=== PATIENT | female | born 1940 | race Caucasian/White ===

== ENCOUNTER 2018-02-17 13:21 | Emergency (ER) | payer MEDICARE, SELFPAY ==
[2018-02-17 13:22] VITALS: BP 148/83; PULSE 65; RESP 18; TEMP 36.8; O2SAT 98
--- NOTE | 2018-02-17 13:22 | EKG12_ITS ---
Test Reason : CP Blood Pressure : / mmHG Vent. Rate : 066 BPM Atrial Rate : 066 BPM P-R Int : 148 ms QRS Dur : 114 ms QT Int : 462 ms P-R-T Axes : 065 -47 078 degrees QTc Int : 484 ms Normal sinus rhythm Left axis deviation Incomplete left bundle branch block Abnormal ECG Confirmed by LEON LOPEZ, BEN ([id number]), science editor RUBEN JANG ([id number] on 02/20/2018 1:34:52 PM Referred By: Confirmed By:BEN QUINTERO MD
[2018-02-17 13:32] VITALS: O2SAT 100
[2018-02-17] MEDS: Ondansetron ODT 4 MG Tablet PO (13:38)
[2018-02-17] MEDS: morphine 8 MG/ML Syringe IV (13:38)
--- NOTE | 2018-02-17 13:38 | RAD_ITS ---
STUDY: X-RAY CHEST REASON FOR EXAM: Female, 77 years old. Chest pain. Heart disease. TECHNIQUE: Single frontal view of the chest. COMPARISON: 05/23/2012. FINDINGS: There is hyperinflation of the lungs consistent with chronic obstructive lung disease (COPD). Stable calcified granuloma lower right lung. No infiltrates or effusions. There is no demonstrated pleural abnormality. There is borderline cardiomegaly. Normal mediastinum and roxie. Normal visualized pulmonary arteries. Normal visualized aortic arch and descending thoracic aorta. Normal visualized thoracic spine. Normal visualized ribs, clavicles, and shoulders. There is no demonstrated abnormality of the visualized soft tissue structures of the upper abdomen. RAD/Chest 1 View (Portable) IMPRESSION: There are findings consistent with COPD. There is no evidence of acute chest disease. Electronically Signed: Sherwin Shine MD at 14:01 EDT , Service support ,
[2018-02-17 13:42] LABS: Absolute Lymphocyte Count 1.12 X10^3/ul (0.83-4.51); Absolute Neutrophil Count 6.5 X10^3/uL (2.0-7.7); Basophil# 0.01 X10^3/uL; Basophil% 0.1 % (0-1); Eosinophils% 1.1 % (0-5); Hematocrit 41.4 % (37-47); Hemoglobin 12.9 g/dl (12.0-15.0); Lymphocyte # 1.12 X10^3/ul (4.0); Lymphocyte % 12.8 % (19-41); Mean Corp Hgb Conc 31.2 g/gl (32-36); Mean Corpuscular Hgb 26.8 pg (27.0-32.0); Mean Corpuscular Volume 85.9 fL (81-99); Mean Platelet Vol. 11.7 fl (6.2-12.0); Monocyte# 0.97 X10^3/uL; Monocyte% 11.1 % (0-10); Neutrophil # 6.51 X10^3/uL (2.7-7.7); Neutrophil % 74.8 % (47-70); POSITIVE COUNT NO; POSITIVE DIFFERENTIAL NO; POSITIVE MORPHOLOGY NO; Platelet Count 133 K/mm3 (150-450); RBC Distribution Width CV 14.5 % (11.6-14.6); RBC Distribution Width SD 45.7 fl (35.1-43.9); Red Blood Count 4.82 M/mm3 (4.2-5.4); White Blood Count 8.7 K/mm3 (4.4-11.0)
--- NOTE | 2018-02-17 13:42 | ED.VISSUMM ---
- ER Visit Summary Date of Service: 02/17/18 Chief Complaint: [] Sharp chest pain for 4-5 days History of Present Illness: The patient is a 77 F [] history of cardiomyopathy ejection fraction 25%, hypertension, one cardiac stent, reports for about 4-5 days she has had chest pain that is sharp in nature, intermittent but has persisted for the last few days, it is persisted and she finally came in for evaluation today she has had a chronic cough that is not new for years no fever no abdominal pain or paresthesias this is not like prior anginal type pain that she has had. Her cardiac status is very stable she seen by Dr. Mcintosh, the last test she had she thought was a cardiac echo that showed nothing new or different she has no history of abdominal pain normal bowel bladder habits no fever no history of DVT or PE and history of leg edema has been able to basically go about her normal activities but want to be evaluated for the chest pain Physical Examination: [] Pressures 208/p she is awake and alert the rest of her vitals are within normal range indicates the pain is worse with a deep breath and with some movements her head exam is unremarkable her neck is supple her lungs are clear the heart tones are distant no obvious murmurs the abdomen is soft nontender upper lower extremity unremarkable pulses symmetric bilaterally the back is unremarkable when she leans forward she complains of discomfort her arm movement is unremarkable without reproduction of pain her lower extremities are unremarkable without cyanosis clubbing or edema neurologically she is awake alert and pulses are symmetric Test Results: [] These note she did have a nuclear stress test in 2014 that showed no signs of ischemic areas Emergency Department Course and Treatment: [] The EKG shows left bundle branch block that is old nothing new compared to prior CBC chemistry troponin d-dimer chest x-ray are all negative on reevaluation she is feeling better a long conversation with her we discussed inpatient versus outpatient admission she then questioned me as to whether or not the fact that maybe she was digging in the garden on Sunday the day before this started if that could have contributed to the pain she is having I told her that was certainly a possibility but she given her cardiac status and condition she may require other diagnostic studies inpatient management etc. she did not wish to stay in the hospital she preferred outpatient workup as again she was feeling fine she has had pain for days the pain is not exertional it is a sharp intermittent stabbing pain Spoke with Dr. Cannon on-call for Dr. Mcintosh given all the above he agrees she will follow-up with outpatient the next few days return for change in symptoms, as a precaution I will provide her with Imn[place] to use as needed as needed if Tylenol is not controlling her pain Treatment Plan: [] Disposition: [] Home stable Impression: [] Sharp chest pain etiology unclear history of cardiomyopathy This note was generated with The car easily beat dictation software. It may contain incorrect words, spelling, and punctuation that were not noted in review of the chart prior to signing ED Disposition - Plan for ED Patient: Chief Complaint: Chest Pain Referrals: Wesley Weinberg III, MD [Primary Care Provider] -
[2018-02-17 13:58] LABS: D-Dimer Quantitative (DVT/PE) 0.28 FEU/ug/m (0.27-0.49)
[2018-02-17 14:01] LABS: Anion Gap 6 (5-15); BUN 20 mg/dL (7-18); Chloride 101 mmol/L (98-107); Creatinine, Serum 1.25 mg/dL (0.55-1.02); EST Glomerular Filtration Rate 44 mL/min (>60); Est Glom Filt Rate - Afr Amer 54 mL/min (>60); Glucose 135 mg/dL (74-106); Potassium 3.6 mmol/L (3.5-5.1); Sodium Level 139 mmol/L (136-145)
[2018-02-17 14:03] VITALS: BP 164/69; PULSE 57; RESP 16; O2SAT 98
--- NOTE | 2018-02-17 14:28 | ED.DEP ---
ED Disposition - Plan for ED Patient: Chief Complaint: Chest Pain Instructions: ED Chest Pain Atypical Unkn Cause Prescriptions: Hydrocodone/Acetaminophen [[place] 5-325 Tablet] 1 - 2 ea PO 4X/DAY PRN PRN 3 Days #12 tab PRN Reason: Pain Referrals: Wesley Weinberg III, MD [Primary Care Provider] -
--- NOTE | 2018-02-17 14:31 | DCINST.ED_ITS ---
ED Disposition - Plan for ED Patient: Chief Complaint: Chest Pain Instructions: ED Chest Pain Atypical Unkn Cause Prescriptions: Hydrocodone/Acetaminophen [[place] 5-325 Tablet] 1 - 2 ea PO 4X/DAY PRN PRN 3 Days #12 tab PRN Reason: Pain Referrals: Wesley Weinberg III, MD [Primary Care Provider] -
[2018-02-17 14:52] VITALS: BP 128/73; PULSE 55; RESP 17; O2SAT 93
== END 2018-02-17 14:53 | disposition home or self-care (01) ==
PROVIDERS: Emergency Provider Emergency Medicine; Family Provider Family Medicine; PCP Family Medicine
DX: R07.9 Chest pain, unspecified (principal); I42.9 Cardiomyopathy, unspecified; I10 Essential (primary) hypertension; Z95.2 Presence of prosthetic heart valve; Z79.82 Long term (current) use of aspirin; Z79.899 Other long term (current) drug therapy
CPT/HCPCS: 71045; 80048; 84484; 85025; 85379; 93005; 96374; 99285; A4216

== ENCOUNTER → 2018-04-18 08:38 | Outpatient (CLI) | payer MEDICARE, SELFPAY ==
[2018-04-18 09:55] LABS: AST(SGOT) 32 U/L (15-37); Alanine Aminotransfer ALT/SGPT 24 U/L (13-56); Albumin, Serum 3.4 g/dL (3.2-5.0); Alkaline Phosphatase 101 U/L (45-117); Bilirubin, Direct 0.18 mg/dL (0.00-0.30); Cholesterol 160 mg/dL (200); Globulin 3.6 g/dL (2.2-4.2); High Density Lipoprotein 90 mg/dL; Triglycerides 99 mg/dL; Very Low Density Lipoprotein 20 mg/dL (5-40)
== END ==
PROVIDERS: Family Provider Family Medicine; PCP Family Medicine; Visit Provider Nurse Practitioner Family
DX: E78.5 Hyperlipidemia, unspecified (principal); Z79.899 Other long term (current) drug therapy
CPT/HCPCS: 36415; 80061; 80076

== ENCOUNTER 2018-07-31 10:20 | Day surgery (SDC) | payer MEDICARE, SELFPAY ==
[2018-07-31 11:04] VITALS: BP 167/102; PULSE 73; RESP 14; TEMP 36.9; O2SAT 100; BMI 19.6
--- NOTE | 2018-07-31 11:27 | PCM.HP.BLA ---
History and Physical Date of Admission: 07/31/18 HISTORY AND PHYSICAL ? Jaleesa Kaur 1940 ? REFERRING PHYSICIAN: ??Wesley Weinberg III, MD ? CHIEF COMPLAINT: ??Consult ? HPI: The patient is a 77 year old female referred for endoscopy. ?Jaleesa notes no history of colon complaints. ?She denies any change in bowel habits, weight changes, blood in stools, black tarry stools or abdominal pain. ?She denies any family history of colon issues. ?The patient ?notes no history of upper GI complaints. ? Jaleesa has ?undergone prior endoscopy in 2007. ?She was scheduled for another colonoscopy last year at the [facility] with Dr. Jones, but was cancelled as her blood pressure was 223/100 when she came in for the procedure. ?She followed up with Dr. Wesley Weinberg after this episode for blood pressure control. ?Per review of his notes there was also concern of possible increase in blood pressure due to the sodium in the bowel prep. ?The patient states that she has not had further issues with significantly elevated blood pressure since that episode. ? The patient is being seen by me today at the request of Dr. Weinberg?for my opinion and advice regarding screening colonoscopy. ?Patient's past medical history significant for ischemic cardiomyopathy, hypertension, atherosclerotic heart diease and presence of coronary artery stent, left bundle branch block, chronic renal insufficiency, carotid artery stenosis. ?She denies any chest pain, shortness of breath or recent hospitalizations. ?Patient follows with Dr. Wesley Weinberg for her chronic medical conditions and with Dr. Mcintosh in cardiology every 6 months. ? ? PAST MEDICAL HISTORY PAST MEDICAL HISTORY Diagnosis Date ? Atherosclerotic heart disease of [place] coronary artery without angina pectoris ? ? Benign hypertension 11/20/2016 ? Chronic renal insufficiency, stage III (moderate) (HCC) 02/11/2015 ? Diverticulosis of colon (without mention of hemorrhage) 12/12/05 ? External hemorrhoids without mention of complication 12/12/05 ? Hyperlipidemia, unspecified ? ? Hypertension ? ? Internal hemorrhoids without mention of complication 12/12/05 ? Ischemic cardiomyopathy ? ? LBBB (left bundle branch block) ? ? Mental disorder ? ? Osteoporosis 05/15/2008 ? Other primary cardiomyopathies ? ? Presence of stent in coronary artery ? ? Secondary hyperparathyroidism (HCC) 03/17/2011 ? Snoring ? ? Syncope ? ? ? PAST SURGICAL HISTORY PAST SURGICAL HISTORY Procedure Laterality Date ? CARDIOPULMONARY EXERCISE TEST ? 07/30/2014 ? Exercise tolerance test - see scanning ? COLONOSCOP W/ OR W/O BRSH SPEC ? 12/12/07 ? HEART SURGERY HX ? ? ? PAST SURGICAL HISTORY OF ? ? ? right breast bx ?benign ? PAST SURGICAL HISTORY OF ? 02/2005 ? coronary artery stent ? ? CURRENT MEDICATIONS ? Current Outpatient Prescriptions: carvedilol (COREG) 12.5 mg tablet Take 1 tablet by mouth twice daily. losartan (COZAAR) 50 mg tablet Take 1 tablet by mouth once daily. FLUoxetine (PROZAC) 20 mg capsule TAKE ONE CAPSULE BY MOUTH ONCE DAILY Cholecalciferol, Vitamin D3, 2,000 unit cap Take 1 tablet by mouth once daily. Calcium Carbonate-Vitamin D2 600-125 mg-unit tab Take 1 tablet by mouth twice daily. atorvastatin (LIPITOR) 10 mg tablet Take 1 tablet by mouth once daily. aspirin, enteric coated 325 mg ORAL EC tablet Take one tablet daily clopidogrel bisulfate(PLAVIX 75 MG TAB) Take one(1) tablet daily. Multivitamin (MULTIPLE VITAMIN) ORAL Tab Take one(1) tablet daily. ? No current facility-administered medications for this visit. ? ALLERGIES: Lisinopril; Oxybutynin ? PERSONAL HISTORY: SOCIAL HISTORY Social History ??Marital status: ?Spouse name: Hitesh ?Years of education: ?Number of children: 2 ? Occupational History Occupation ?Employer ?Comment ?[employer]* ? Social History Main Topics ??Smoking status: Never Smoker ?Smokeless tobacco: Never Used ?Alcohol use: No ?Drug use: No ? FAMILY HISTORY: FAMILY HISTORY FAMILY HISTORY Problem Relation Age of Onset ? Diabetes Mother ? ? Heart Father ? ? Breast Cancer Sister ? ? Alzheimer's Disease Sister ? ? Skin Cancer Brother ? ? REVIEW OF SYMPTOMS: ??The review of systems data was entered by the nurse and reviewed by me ? Nursing Notes: Yvette Garces MA ?06/13/2018 ?3:08 PM ?Signed REVIEW OF SYSTEMS: ?General:???The patient NOTES fatigue, denies weight loss, denies weight gain, denies feeling hot, and denies feelings of cold. ?Eyes: ?The patient denies glaucoma, denies eye injury/surgery, wears glasses or contacts. ?Ear/Nose/Throat: ?The patient denies allergies, denies hayfever, denies ear infections, and denies bloody noses. ?Cardiovascular: ?The patient denies chest pain, NOTES heart disease, NOTES high blood pressure,NOTES cardiac stent, denies prior heart attack, denies irregular heart beat, denies high cholesterol, ?denies poor circulation, NOTES heart failure, other cardiac issues, denies claudication, denies cold feet, denies peripheral arterial stent. ?Respiratory: ?The patient denies tuberculosis, denies pneumonia, denies frequent cough, denies pulmonary embolism, denies shortness of breath, and denies coughing up blood. ?Gastrointestinal: ?The patient denies difficulty swallowing, denies acid reflux, denies ulcers, denies vomiting, denies jaundice/hepatitis, denies gallbladder problems, denies black or tarry stools, denies hemorrhoids, denies bleeding from rectum, denies diverticulitis, denies constipation, denies diarrhea, denies loss of stool control, and denies hernias. ?Kidney/Bladder: ?The patient denies kidney stones, denies urine infections, and denies bloody urine. ?Skin: ?The patient denies a history of skin cancer, denies bleeding/changing moles, and denies a history of skin rash. ?Neurologic: ?The patient denies a history of epilepsy/convulsions, denies headaches, denies head/spinal injuries, and denies stroke/TIA. ?Psychiatric: ?The patient denies psychiatric medications, denies depression, and denies voices, denies substance abuse. ?Endocrine: ?The patient denies thyroid disorders, denies diabetes, and denies hormonal problems. ?Hematologic: ?The patient denies a history of bruising, denies bleeding, and denies anemia, denies blood clots. ?Infections: ?The patient notes a history of measles and mumps, denies rheumatic fever, and denies sexually transmitted diseases. ?Musculoskeletal: ?The patient denies back pain/injury, denies back problems, denies sciatica, denies knee/foot trouble, denies arthritis, or denies gout. ? ? When was patient's last Mammogram screening? 10/2017 ?Last Colonoscopy: ?10 years ago ? Yvette Garces MA ?I have confirmed and edited as necessary, the PFSH and ROS obtained by others. ? PHYSICAL EXAMINATION: ? General: ?The patient is 77 year old female, well nourished, well hydrated in no acute distress. ?The patient is oriented to time, place, and person. ? VITALS: Blood pressure 124/70, weight 52.7 kg (116 lb 3.2 oz).?Body mass index is 20.26 kg/m?.? ? HEENT: ?Normal cephalic, ataumatic, pupils are equally round, sclera are anicteric, mucous membranes are moist, oropharynx is clear. ?Neck has no masses, asymmetry or lymphadenopathy. ? ? Respiratory: ?Clear to auscultation and percussion. ?Normal respiratory excursion and pattern. ? Cardiac: ?Examination is regular rate and rhythm. ? Abdominal exam: ?Soft, nontender, ?with no palpable masses. ?No hepatosplenomegaly. ?No palpable hernias. ? Extremities: ?no clubbing, cyanosis or edema. ?No adenopathy. ? Other: ? LABORATORY VALUES: As Noted ? RADIOLOGIC STUDIES: ?As Noted ? Assessment ? IMPRESSION: encounter for screening colonoscopy. ?Cardiac history-plan for MAC ? PLAN: We will plan for lower endoscopy, to be done with MAC due to medical comorbidities. ??We discussed the risks and benefits of the planned endoscopy. ?I have informed the patient that complications can occur including failure to complete the endoscopy and perforation. ?The patient had the opportunity to ask questions concerning the planned endoscopy. ?My staff has also explained the procedure to the patient in understandable terms and has given the patient printed material concerning the procedure. ?The patient freely consents to surgery. ? I plan to use Miralax?bowel preparation for endoscopy split over two days, and two days of clear liquid diet. ?Reviewed importance of good hydration with bowel preparation ? Patient instructed to REMAIN ON her anticoagulation for the procedure ? I plan for monitored anesthetic care. ? Diagnoses: (Z12.11) Encounter for screening for malignant neoplasm of colon ?(primary encounter diagnosis) ? A letter was sent to Dr. Wesley Weinberg, III ?indicating the above finding for this patient. ?? Return to Clinic: The patient is instructed to follow-up with me 1 week post operatively. ? ? Yvette Vasquez PA-C
[2018-07-31 12:34] VITALS: BP 167/102; BP 93/49; PULSE 56; RESP 16; TEMP 36.2; O2SAT 99
--- NOTE | 2018-07-31 12:37 | OP.ENDO_ITS ---
Patient Name: Jaleesa Kaur Procedure Date: 07/31/2018 10:36 AM Date of : 1940 Age: 77 Procedure: Colonoscopy Indications: Screening for colorectal malignant neoplasm Providers: Ricardo Wood MD Medicines: Monitored Anesthesia Care Patient Profile: This is a 77 year old female. Refer to note in patient chart for documentation of history and physical. Last Colonoscopy: 10 years ago. Complications: No immediate complications. Procedure: Pre-Anesthesia Assessment: - Prior to the procedure, a History and Physical was performed, and patient medications and allergies were reviewed. The patient is competent. The risks and benefits of the procedure and the sedation options and risks were discussed with the patient. All questions were answered and informed consent was obtained. Patient identification and proposed procedure were verified by the physician, the nurse and the electric meter tester in the procedure room. Mental Status Examination: alert and oriented. Airway Examination: normal oropharyngeal airway and neck mobility. Respiratory Examination: clear to auscultation. CV Examination: normal. Prophylactic Antibiotics: The patient does not require prophylactic antibiotics. Prior Anticoagulants: The patient has taken no previous anticoagulant or antiplatelet agents. ASA Grade Assessment: III - A patient with severe systemic disease. After reviewing the risks and benefits, the patient was deemed in satisfactory condition to undergo the procedure. The anesthesia plan was to use monitored anesthesia care (MAC). Immediately prior to administration of medications, the patient was re-assessed for adequacy to receive sedatives. The heart rate, respiratory rate, oxygen saturations, blood pressure, adequacy of pulmonary ventilation, and response to care were monitored throughout the procedure. The physical status of the patient was re-assessed after the procedure. After I obtained informed consent, the scope was passed under direct vision. Throughout the procedure, the patient's blood pressure, pulse, and oxygen saturations were monitored continuously. The pediatric colonoscope was introduced through the anus and advanced to the cecum, identified by the appendiceal orifice, ileocecal valve and palpation. The colonoscopy was performed without difficulty. The patient tolerated the procedure well. The quality of the bowel preparation was good. Scope In: 12:12:18 PM Scope Withdrawal Time 0 hours 4 minutes 3 seconds Scope Out: 12:28:49 PM Total Procedure Duration Time 0 hours 16 minutes 31 seconds Findings: The perianal and digital rectal examinations were normal. The entire examined colon appeared normal on direct and retroflexion views. Impression: - The entire examined colon is normal on direct and retroflexion views. - No specimens collected. Recommendation: - Discharge patient to home. - Resume previous diet. - Continue present medications. - Repeat colonoscopy not needed given current recommendations. Ricardo Wood MD 07/31/2018 12:37:15 PM This report has been signed electronically. Number of Addenda: 0 Note Initiated On: 07/31/2018 10:36 AM
[2018-07-31 12:39] VITALS: BP 123/58; BP 167/102; PULSE 60; RESP 16; O2SAT 97
[2018-07-31 12:45] VITALS: BP 135/54; BP 167/102; PULSE 59; RESP 16; O2SAT 99
[2018-07-31 12:48] VITALS: BP 139/63; BP 167/102; PULSE 59; RESP 16; TEMP 36.6; O2SAT 100
[2018-07-31 13:14] VITALS: BP 167/102
== END 2018-07-31 13:29 | disposition home or self-care (01) ==
LOC: EN 10:20 → AC 10:22
PROVIDERS: Family Provider Family Medicine; PCP Family Medicine; Referring Provider Surgery; Visit Provider Surgery
PROC: 0DJD8ZZ Inspection of Lower Intestinal Tract, Via Natural or Artificial Opening Endoscopic (ICD-10-PCS; CPT 45378; principal; 2018-07-31 12:25)
DX: Z12.11 Encounter for screening for malignant neoplasm of colon (principal); I25.10 Atherosclerotic heart disease of native coronary artery without angina pectoris; I12.9 Hypertensive chronic kidney disease with stage 1 through stage 4 chronic kidney disease, or unspecified chronic kidney disease; N18.3 Chronic kidney disease, stage 3 (moderate); I25.5 Ischemic cardiomyopathy; I44.7 Left bundle-branch block, unspecified; I65.23 Occlusion and stenosis of bilateral carotid arteries; E78.5 Hyperlipidemia, unspecified; M81.0 Age-related osteoporosis without current pathological fracture; E78.00 Pure hypercholesterolemia, unspecified; F41.9 Anxiety disorder, unspecified; Z95.5 Presence of coronary angioplasty implant and graft; Z79.82 Long term (current) use of aspirin; Z79.899 Other long term (current) drug therapy
CPT/HCPCS: G0121; J7120

== ENCOUNTER 2018-09-21 08:56 | Emergency (ER) | payer MEDICARE, SELFPAY ==
[2018-09-21 08:57] VITALS: BP 146/77; PULSE 71; RESP 16; TEMP 36.3; O2SAT 99; BMI 20.5
--- NOTE | 2018-09-21 09:08 | RAD_ITS ---
STUDY: X-RAY - LUMBAR SPINE REASON FOR EXAM: Female, 77 years old. Left-sided hip pain getting worse. TECHNIQUE: 3 view(s) of the lumbar spine were obtained. COMPARISON: Prior comparison studies are not available for review at this time. FINDINGS: There is an exaggerated lumbar lordosis. There is no substantial scoliosis. There is a normal alignment of the vertebrae. There is multilevel endplate spondylosis of the lumbar vertebrae. There is multi-level degenerative disc disease with multi-level disc space narrowing. The soft tissue structures are unremarkable. RAD/Lumbar Spine 2 or 3 Views IMPRESSION: Multilevel degenerative disc disease, spondylosis and degenerative arthropathy of the lumbar spine. Electronically Signed: Bhumi Archuleta MD at 9:38 EST , Service support ,
--- NOTE | 2018-09-21 09:08 | RAD_ITS ---
STUDY: X-RAY - LEFT HIP REASON FOR EXAM: Female, 77 years old. Left hip pain is worsening after fall on September 17, 2018 TECHNIQUE: 3 views of the hip. COMPARISON: Prior comparison studies are not available for review at this time. FINDINGS: There is diffuse demineralization of the osseous structures. There appears to be area of subacute fracture arising from the lesser trochanter of the left femur. There may also be an undisplaced left-sided intertrochanteric fracture. There are degenerative changes of both hips. There is mild osteoarthritic spur formation of the acetabular rims. Normal hip joint. Normal visualized superior and inferior pubic rami and ischial tuberosities. RAD/HIP, UNI W/ Pelvis 2-3 Views IMPRESSION: 1. A subacute fracture arising from the LEFT-sided lesser trochanter. 2. Undisplaced LEFT-sided intertrochanteric fracture. 3. Degenerative arthropathy of both hips. Electronically Signed: Bhumi Archuleta MD at 9:42 EST , Service support ,
--- NOTE | 2018-09-21 09:11 | ED.DCSUM_ITS ---
- ER Visit Summary Date of Service: 09/21/18 Chief Complaint: Left hip and back pain status post fall History of Present Illness: The patient is a 77 F who had a fall 4 days ago. She states that she fell on her left hip and back. Denies any head trauma or LOC. Ever since then she has had pain in her lower back radiating to her left hip. She has been able to ambulate since then. She has been trying aspirin, Advil and Tylenol but the pain still persist. The pain is worse at night. Currently she denies any pain. Physical Examination: Vital signs reviewed. Back exam reveals no specific tenderness anywhere. Her left hip is nontender. She has full range of motion without any pain. Her neurologic exam is normal. Test Results: X-ray of the left hip reveals a questionable intertrochanteric fracture with a lesser trochanter a avulsion fracture. L-spine x-ray reveals degenerative changes. CAT scan of the left hip reveals greater and lesser trochanteric avulsion fractures Emergency Department Course and Treatment: The patient has a avulsion fractures of the greater and lesser trochanters. There is no intertrochanteric fracture. I discussed this with Dr. Smith, on-call for orthopedics. He recommended the patient have a walker and pain control and can be discharged and follow-up as an outpatient. The patient has been ambulating normally and she feels that she does not need a walker. I will give for [place] for pain at home. She will be given orthopedic follow-up Treatment Plan: [] Disposition: Discharge Impression: Left hip lesser trochanter avulsion fracture Left hip greater trochanteric avulsion fracture This note was generated with [employer] dictation software. It may contain incorrect words, spelling, and punctuation that were not noted in review of the chart prior to signing ED Disposition - Plan for ED Patient: Chief Complaint: Fall Referrals: Wesley Weinberg III, MD [Primary Care Provider] -
--- NOTE | 2018-09-21 10:04 | CT_ITS ---
STUDY: CT LEFT HIP WITHOUT CONTRAST REASON FOR EXAM: Female, 77 years old. Left-sided hip pain after fall. RADIATION DOSAGE (If Supplied By Facility): CTDIvol = ( 12.99 ) mGy, DLP = ( 454.00 ) mGycm TECHNIQUE: Transaxial CT imaging of the hip was performed. Sagittal and coronal images were reconstructed. Individualized dose optimization techniques were used for this CT. COMPARISON: Radiographs of the left hip September 21, 2018. FINDINGS: Normal visualized femur. Normal visualized soft tissue structure. There is irregularity of the contralateral lesser trochanter probably related to previous avulsion injury. There is also a small calcification or bone fragment near the greater trochanter which could be the result of avulsion injury. Normal acetabulum. Normal hip joint. Normal visualized superior and inferior pubic rami and ischial tuberosities. There is degenerative disk disease at L4-5 with vacuum disk phenomenon and disk space narrowing. Normal urinary bladder. Normal visualized small intestine. Normal visualized colon. There is no pelvic fluid. There is no pelvic mass lesion or lymphadenopathy. Normal visualized pelvic arteries. Normal abdominal wall. CT/Extremity Lower without Contra IMPRESSION: 1. Avulsion injury arising from the lesser trochanter as well as possibly the greater trochanter of the femur. 2. There is no CT evidence for intertrochanteric fracture. Electronically Signed: Bhumi Archuleta MD at 10:48 EST , Service support ,
--- NOTE | 2018-09-21 11:24 | DCINST.ED_ITS ---
ED Disposition - Plan for ED Patient: Disposition: Home or Assisted Living Chief Complaint: Fall Instructions: ED Mechanical Fall Prescriptions: Hydrocodone Bitart/Apap 5-325 [[place] 5MG-325MG] 1 tab PO Q6H PRN PRN 3 Days #10 tab PRN Reason: Pain Referrals: Wesley Weinberg III, MD [Primary Care Provider] -
[2018-09-21 11:28] VITALS: BP 131/66; PULSE 69; RESP 16; O2SAT 99
== END 2018-09-21 11:28 | disposition home or self-care (01) ==
PROVIDERS: Emergency Provider Emergency Medicine; Family Provider Family Medicine; PCP Family Medicine
DX: S72.122A Displaced fracture of lesser trochanter of left femur, initial encounter for closed fracture (principal); W18.30XA Fall on same level, unspecified, initial encounter; Y93.9 Activity, unspecified; Y92.9 Unspecified place or not applicable; I10 Essential (primary) hypertension; Z79.899 Other long term (current) drug therapy; Z79.02 Long term (current) use of antithrombotics/antiplatelets; Z79.82 Long term (current) use of aspirin
CPT/HCPCS: 72100; 73502; 73700; 99283

== ENCOUNTER 2018-11-20 06:54 | Emergency (ER) | payer MEDICARE, SELFPAY ==
[2018-11-20 06:57] VITALS: BP 209/89; PULSE 67; RESP 16; TEMP 36.6; O2SAT 98; BMI 21.1
--- NOTE | 2018-11-20 07:51 | CT_ITS ---
STUDY: CT ABDOMEN AND PELVIS WITHOUT CONTRAST REASON FOR EXAM: Female, 78 years old. One-week history of right sided abdominal pain. RADIATION DOSAGE (If Supplied By Facility): CTDIvol = ( 6.21 ) mGy, DLP = ( 270.09 ) mGycm TECHNIQUE: Transaxial images were obtained from the dome of the diaphragm to the symphysis pubis without oral contrast, and without intravenous contrast. Sagittal and coronal images were reconstructed. Individualized dose optimization techniques were used for this CT. COMPARISON: None. FINDINGS: Small right pleural effusion with right basilar atelectasis. Mild pleural parenchymal changes at the left lung base. Retrocrural lymphadenopathy. Moderate sized pericardial effusion. Normal liver. There are multiple gallstones. Mildly distended gallbladder. Normal spleen. There is diffuse atrophy of the pancreas. Normal bilateral adrenal glands. Normal right kidney. Normal left kidney. There is a small hiatal hernia. Normal small intestine. Normal colon. The appendix is visualized and appears normal. There is diffuse atherosclerotic calcification of the abdominal aorta, without a demonstrated aneurysm. Normal inferior vena cava. There is retroperitoneal lymphadenopathy with enlarged nodes greater than 10-15mm in the short axis. Normal urinary bladder. Normal abdominal wall. There are diffuse degenerative changes of the visualized lumbar spine. CT/Abdomen/Pelvis without Cont IMPRESSION: Extensive retroperitoneal lymphadenopathy as well as retrocrural lymphadenopathy. Right pleural effusion with underlying atelectasis. Mild pleural parenchymal changes at the left lung base. Pericardial effusion. Multiple gallstones. Electronically Signed: Alonzo Hardwick MD at 9:11 EST , Service support ,
--- NOTE | 2018-11-20 07:52 | EKG12_ITS ---
Test Reason : ABDOMINAL PAIN Blood Pressure : / mmHG Vent. Rate : 062 BPM Atrial Rate : 062 BPM P-R Int : 138 ms QRS Dur : 112 ms QT Int : 472 ms P-R-T Axes : 064 -53 063 degrees QTc Int : 479 ms Normal sinus rhythm Possible Left atrial enlargement Left axis deviation Incomplete left bundle branch block Abnormal ECG Confirmed by LEON LOPEZ, BEN ([id number]), loan expeditor RUBEN JANG ([id number]) on 12/04/2018 10:29:41 AM Referred By: DAVI Confirmed By:BEN QUINTERO MD
[2018-11-20 08:35] LABS: Absolute Lymphocyte Count 0.64 X10^3/ul (0.83-4.51); Eosinophils% 1.6 % (0-5); Hematocrit 41.8 % (37-47); Lymphocyte # 0.64 X10^3/ul (4.0); Lymphocyte % 10.2 % (19-41); Mean Corp Hgb Conc 31.1 g/gl (32-36); Mean Corpuscular Hgb 26.9 pg (27.0-32.0); Mean Corpuscular Volume 86.4 fL (81-99); Mean Platelet Vol. 11.6 fl (6.2-12.0); Monocyte# 0.52 X10^3/uL; Monocyte% 8.3 % (0-10); Neutrophil % 79.7 % (47-70); Platelet Count 154 K/mm3 (150-450); RBC Distribution Width CV 14.4 % (11.6-14.6); RBC Distribution Width SD 45.1 fl (35.1-43.9); Red Blood Count 4.84 M/mm3 (4.2-5.4); White Blood Count 6.3 K/mm3 (4.4-11.0)
[2018-11-20] MEDS: Ondansetron 4 MG/2 ML Vial IV (08:35)
[2018-11-20] MEDS: 0.9% Normal Saline 1,000 ML 125 ML IV (08:35)
[2018-11-20] MEDS: Morphine 4 MG/ML Syringe IV (08:35)
[2018-11-20 08:36] LABS: POSITIVE COUNT NO; POSITIVE DIFFERENTIAL NO; POSITIVE MORPHOLOGY NO
[2018-11-20 08:53] LABS: ALB/GLOB Ratio 0.8 RATIO (0.9-2.4); AST(SGOT) 19 U/L (15-37); Alanine Aminotransfer ALT/SGPT 17 U/L (13-56); Alkaline Phosphatase 108 U/L (45-117); Anion Gap 7 (5-15); BUN 19 mg/dL (7-18); BUN/Creat Ratio 18.6 RATIO (10-20); Calcium,Total 8.8 mg/dL (8.5-10.1); Chloride 104 mmol/L (98-107); Creatinine, Serum 1.02 mg/dL (0.55-1.02); EST Glomerular Filtration Rate 56 mL/min (>60); Est Glom Filt Rate - Afr Amer 68 mL/min (>60); Estimated Creatinine Clearance 40.52 ml/min; Globulin 3.6 g/dL (2.2-4.2); Glucose 93 mg/dL (74-106); Lipase 53 U/L (73-393); Potassium 3.9 mmol/L (3.5-5.1); Protein, Total 6.6 g/dL (6.4-8.2); Sodium Level 140 mmol/L (136-145)
[2018-11-20 09:01] LABS: Lactic Acid 0.8 mmol/L (0.4-2.0)
--- NOTE | 2018-11-20 09:36 | RAD_ITS ---
STUDY: X-RAY CHEST REASON FOR EXAM: Female, 78 years old. One week history of right-sided pain. TECHNIQUE: Single AP portable view of the chest. COMPARISON: Comparison is made with prior study dated February 17, 2018. FINDINGS: Hyperinflation. Stable calcified granuloma in the lateral right lower lobe. There is no demonstrated pleural abnormality. There is borderline cardiomegaly. Normal mediastinum and roxie. Normal visualized pulmonary arteries. There is atherosclerotic calcification of the aortic arch with tortuosity. There is a dextroscoliosis of the thoracic spine. Normal visualized ribs, clavicles, and shoulders. There is no demonstrated abnormality of the visualized soft tissue structures of the upper abdomen. RAD/Chest 1 View (Portable) IMPRESSION: Hyperinflation. The lungs are clear. No acute abnormality is seen. Electronically Signed: Alonzo Hardwick MD at 10:09 EST , Service support ,
--- NOTE | 2018-11-20 10:15 | US_ITS ---
STUDY: ABDOMINAL ULTRASOUND - RIGHT UPPER QUADRANT REASON FOR VISIT: Female, 78 years old. Abdominal pain. Gallstones. TECHNIQUE: Ultrasound evaluation of the right upper quadrant was performed with real-time and static nagy-scale imaging. TECHNICAL QUALITY: Adequate. COMPARISON: Comparison made with prior CT scan of the abdomen and pelvis done earlier today. FINDINGS: Liver: The liver measures 12.3 cm. There is a heterogeneous echogenicity of the liver. The bile ducts are within normal limits. There is hepatic color flow. The direction of portal flow is hepatopetal. There is no demonstrated mass lesion. Gallbladder: There is a mildly distended gallbladder. The gallbladder wall measures 2.1 mm. There is a negative sonographic Westbrook's sign. There is no pericholecystic fluid. There are multiple echogenic structures within the gallbladder, consistent with multiple gallstones. Common Bile Duct (C.B.D.): The common bile duct measures 4.5 mm. Pancreas: Normal size of the head, body and tail of the pancreas. There is normal echogenicity of the pancreas. There is no demonstrated pancreatic mass or cyst. Right Kidney: Normal size of the right kidney. The right kidney measures 9.4 cm x 3.8 cm x 4.0 cm. There is thinning of the renal cortex. The right cortex measures 0.9 cm. There is no demonstrated renal mass or cyst. There is no right hydronephrosis. Small right pleural effusion. US/Gallbladder IMPRESSION: Heterogeneous appearance of the liver. Multiple gallstones. Mildly distended gallbladder Electronically Signed: Alonzo Hardwick MD at 10:57 EST , Service support ,
[2018-11-20 10:18] VITALS: BP 115/74; PULSE 67; RESP 15; O2SAT 98
[2018-11-20 10:27] LABS: Bacteria 0 SEEN /hpf (None Seen); Mucous, Urine 0 SEEN /hpf (<or=2+); Squamous Epithelial Cells - UA 0 SEEN /hpf (5-10)
[2018-11-20 10:30] LABS: Color, Urine Yellow (Yellow); Glucose, Dipstick Normal (Normal); Ketone-Dipstick 15 mg/dl (Negative); Leukocyte Esterase-Dipstick 25 /ul (Negative); Nitrite-Dipstick Negative (Negative); Occult Blood-Urine 25 /ul (Negative); Protein-Dipstick 30 mg/dl (Negative); Urine Bilirubin Dipstick Negative (Negative); Urine Clarity Clear (Clear); Urine Urobilinogen Normal (Normal)
[2018-11-20 10:36] LABS: Red Blood Cells-Urine 0-5 SEEN /hpf (0-5); White Blood Cells 0-5 SEEN /hpf (0-5)
--- NOTE | 2018-11-20 12:13 | ED.VISSUMM ---
- ER Visit Summary Date of Service: 11/20/18 Chief Complaint: [Back pain and abdominal pain] History of Present Illness: The patient is a 78 F [presents the emergency department complaint of pain in her back started about a week and a half ago. Patient states the pain also now involves the abdomen somewhat diffusely. On arrival she rates her pain a 5 out of 10. Patient states at night it is causing her to have a hard time sleeping. Patient apparently was seen by her primary care physician 2 days ago and to him describe that she lifted a dog and felt that maybe she pulled a muscle in her back. Patient denies any pain radiating into her buttocks or down her legs. She denies food affecting the pain at all in her abdomen. She has had no nausea or vomiting. Patient's not had fevers. She denies any diarrhea. She denies any blood in her stool or black tarry stool. Patient's been taken Tylenol and occasionally a Percocet for pain. She denies any chest pain or shortness of breath.] Physical Examination: [HEENT-PERRLA, EOMI. Cranial nerves II through XII grossly intact. TMs clear. Mucous membranes moist. No adenopathy. Cardiovascular-regular rate and rhythm without murmur or ectopy Lungs-clear to auscultation, chest wall stable without crepitus or subcu emphysema Abdomen-normoactive bowel sounds, soft. Patient has some mild diffuse tenderness on palpation. There is no rebound, rigidity, or perineal signs. Back exam-I cannot reproduce her pain with palpation of her thoracic or lumbar spine. There is no ecchymosis or bruising. There is no erythema or warmth. She has negative straight leg raises. Deep tendon reflexes are plus out of 4 bilaterally at the patella and Achilles. Patient has normal L5 extension. 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 EKG is unchanged from February 2018. CBC with differential was significant for a white blood cell count of 6.3, hemoglobin 13, hematocrit 42, platelets 154. Chemistries unremarkable. LFTs were normal. Lipase was normal. Urinalysis was normal. Troponin was less than 0.015. CT flank showed extensive retroperitoneal adenopathy and a small right pleural effusion as well as a moderate pericardial effusion. Patient also was noted to have gallstones within the gallbladder and the gallbladder was mildly distended. Ultrasound of the gallbladder showed again gallstones and mildly distended gallbladder. No evidence for cholecystitis. Chest x-ray obtained showed mild cardiomegaly as well as a granuloma in the right lower lobe that seems unchanged from prior study otherwise nothing significant.] Emergency Department Course and Treatment: [Patient initially was medicated with morphine and Zofran and she had some pain relief with that. I did discuss case with her primary care physician Dr. Wesley Weinberg iii the third who saw the patient 2 days ago.] Treatment Plan: [Patient will be given a prescription for Percocet for pain and advised to follow-up within the next 5-7 days with her primary care physician. Patient to return if worsening pain, fever, vomiting, or condition should worsen anyway.] Disposition: [Discharged home in stable condition] Impression: [Back pain Abdominal pain-etiology uncertain] This note was generated with [employer] dictation software. It may contain incorrect words, spelling, and punctuation that were not noted in review of the chart prior to signing ED Disposition - Plan for ED Patient: Referrals: Wesley Weinberg III, MD [Primary Care Provider] -
--- NOTE | 2018-11-20 12:17 | ED.DCSUM_ITS ---
- ER Visit Summary Date of Service: 11/20/18 Chief Complaint: [Back pain and abdominal pain] History of Present Illness: The patient is a 78 F [presents the emergency department complaint of pain in her back started about a week and a half ago. Patient states the pain also now involves the abdomen somewhat diffusely. On arrival she rates her pain a 5 out of 10. Patient states at night it is causing her to have a hard time sleeping. Patient apparently was seen by her primary care physician 2 days ago and to him describe that she lifted a dog and felt that maybe she pulled a muscle in her back. Patient denies any pain radiating into her buttocks or down her legs. She denies food affecting the pain at all in her abdomen. She has had no nausea or vomiting. Patient's not had fevers. She denies any diarrhea. She denies any blood in her stool or black tarry stool. Patient's been taken Tylenol and occasionally a Percocet for pain. She denies any chest pain or shortness of breath.] Physical Examination: [HEENT-PERRLA, EOMI. Cranial nerves II through XII grossly intact. TMs clear. Mucous membranes moist. No adenopathy. Cardiovascular-regular rate and rhythm without murmur or ectopy Lungs-clear to auscultation, chest wall stable without crepitus or subcu emph ysema Abdomen-normoactive bowel sounds, soft. Patient has some mild diffuse tenderness on palpation. There is no rebound, rigidity, or perineal signs. Back exam-I cannot reproduce her pain with palpation of her thoracic or lumbar spine. There is no ecchymosis or bruising. There is no erythema or warmth. She has negative straight leg raises. Deep tendon reflexes are plus out of 4 bilaterally at the patella and Achilles. Patient has normal L5 extension. 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 EKG is unchanged from February 2018. CBC with differential was significant for a white blood cell count of 6 .3, hemoglobin 13, hematocrit 42, platelets 154. Chemistries unremarkable. LFTs were normal. Lipase was normal. Urinalysis was normal. Troponin was less than 0.015. CT flank showed extensive retroperitoneal adenopathy and a small right pleural effusion as well as a moderate pericardial effusion. Patient also was noted to have gallstones within the gallbladder and the gallbladder was mildly distended. Ultrasound of the gallbladder showed again gallstones and mildly distended gallbladder. No evidence for cholecystitis. Chest x-ray obtained showed mild cardiomegaly as well as a granuloma in the right lower lobe that seems unchanged from prior study otherwise nothing significant.] Emergency Department Course and Treatment: [Patient initially was medicated with morphine and Zofran and she had some pain relief with that. I did discuss case with her primary care physician Dr. Wesley Weinberg iii the third who saw the patient 2 days ago.] Treatment Plan: [Patient will be given a prescription for Percocet for pain and advised to follow-up within the next 5-7 days with her primary care physician. Patient to return if worsening pain, fever, vomiting, or condition should worsen anyway.] Disposition: [Discharged home in stable condition] Impression: [Back pain Abdominal pain-etiology uncertain] This note was generated with [employer] dictation software. It may contain incorrect words, spelling, and punctuation that were not noted in review of the chart prior to signing ED Disposition - Plan for ED Patient: Referrals: Wesley Weinberg III, MD [Primary Care Provider] -
--- NOTE | 2018-11-20 12:17 | ED.DEP ---
ED Disposition - Plan for ED Patient: Instructions: ED Abdominal Pain Unkn Cause, ED Neck Back Pain General Prescriptions: Oxycodone HCl/Acetaminophen [Percocet 5/325] 1 tab PO Q6H PRN PRN 5 Days #20 tab PRN Reason: Pain Referrals: Wesley Weinberg III, MD [Primary Care Provider] - 5-7 Days
[2018-11-20 12:34] VITALS: BP 129/74; PULSE 62; RESP 15; O2SAT 98
== END 2018-11-20 12:35 | disposition home or self-care (01) ==
LOC: ED 07:56
PROVIDERS: Emergency Provider Emergency Medicine; Family Provider Family Medicine; PCP Family Medicine
DX: M54.9 Dorsalgia, unspecified (principal); R10.9 Unspecified abdominal pain; I25.10 Atherosclerotic heart disease of native coronary artery without angina pectoris; I42.9 Cardiomyopathy, unspecified; I10 Essential (primary) hypertension
CPT/HCPCS: 71045; 74176; 76705; 80053; 81001; 83605; 83690; 84484; 85025; 93005; 96361; 96374; 96375; 99283; J7030; A4216; J2405

== ENCOUNTER 2018-12-13 13:53 | Inpatient (IN) | payer MEDICARE, SELFPAY ==
[2018-12-13] VITALS (10 sets, daily range): BP systolic 112–183; BP diastolic 43–140; PULSE 58–87; RESP 13–18; TEMP 36.3–37; O2SAT 95–99; BMI 19.9; BMI 19.6; BMI 19.7
--- NOTE | 2018-12-13 14:46 | EKG12_ITS ---
Test Reason : SYNCOPE Blood Pressure : / mmHG Vent. Rate : 060 BPM Atrial Rate : 060 BPM P-R Int : 136 ms QRS Dur : 126 ms QT Int : 502 ms P-R-T Axes : 070 -53 082 degrees QTc Int : 502 ms Normal sinus rhythm Possible Left atrial enlargement Left bundle branch block Abnormal ECG Confirmed by YUNG LOPEZ, ASHER ([id number]), electronic news gathering editor RUBEN JANG ([id number]) on 12/16/2018 1:51:14 PM Referred By: Gale Weldon Confirmed By:ASHER BARRAGAN MD
--- NOTE | 2018-12-13 15:01 | RAD_ITS ---
STUDY: X-RAY CHEST REASON FOR EXAM: Female, 78 years old. Chest pain. TECHNIQUE: Single AP portable view of the chest. COMPARISON: Comparison is made with prior study of November 20, 2018. FINDINGS: EKG electrodes are seen. Hyperinflation. Stable calcified adenoma in the lateral aspect of the right lower lobe. No acute abnormality is seen. There is no demonstrated pleural abnormality. There is borderline cardiomegaly. Normal mediastinum and roxie. Normal visualized pulmonary arteries. There is atherosclerotic tortuosity of the aortic arch and descending thoracic aorta. There are diffuse degenerative changes of the visualized thoracic spine. Normal visualized ribs, clavicles, and shoulders. There is no demonstrated abnormality of the visualized soft tissue structures of the upper abdomen. RAD/Chest 1 View (Portable) IMPRESSION: Hyperinflation. No acute abnormality is seen. Electronically Signed: Alonzo Hardwick, at 15:46 EST , Service support ,
[2018-12-13 15:19] LABS: Absolute Lymphocyte Count 0.93 X10^3/ul (0.83-4.51); Absolute Neutrophil Count 5.8 X10^3/uL (2.0-7.7); Basophil# 0.01 X10^3/uL; Basophil% 0.1 % (0-1); Differential Indicated SCAN CRITERIA MET; Eosinophil# 0.12 X10^3/uL; Eosinophils% 1.5 % (0-5); Hematocrit 43.5 % (37-47); Hemoglobin 13.1 g/dl (12.0-15.0); Lymphocyte # 0.93 X10^3/ul (4.0); Lymphocyte % 11.9 % (19-41); Mean Corp Hgb Conc 30.1 g/gl (32-36); Mean Corpuscular Hgb 25.7 pg (27.0-32.0); Mean Corpuscular Volume 85.5 fL (81-99); Mean Platelet Vol. 11.4 fl (6.2-12.0); Monocyte# 0.94 X10^3/uL; Monocyte% 12.1 % (0-10); Neutrophil # 5.77 X10^3/uL (2.7-7.7); Neutrophil % 74.1 % (47-70); POSITIVE COUNT NO; POSITIVE DIFFERENTIAL NO; POSITIVE MORPHOLOGY YES; Platelet Count 124 K/mm3 (150-450); RBC Distribution Width SD 46.5 fl (35.1-43.9); Red Blood Count 5.09 M/mm3 (4.2-5.4); White Blood Count 7.8 K/mm3 (4.4-11.0)
[2018-12-13 15:21] LABS: Bedside Glucose 123 mg/dL (70-110)
--- NOTE | 2018-12-13 15:21 | ED.DCSUM_ITS ---
- ER Visit Summary Date of Service: 12/13/18 Chief Complaint: Passed out x2 History of Present Illness: The patient is a 78 F past medical history cardiac stent x1, CAD and hypertension. He states his been feeling well. Today her walking through an area L. She became lightheaded and had a syncopal episode. He was lying beside her and caught her and she never fell or hit her head and is loaded with the ground. Prior to the event she felt lightheaded but she did not have a headache, chest pain or shortness of breath. No abdominal pain. No nausea, vomiting, diarrhea or melena. No recent fever. She has been feeling fine. She has passed out before. said he sat there for a while to start walking again as he was going down an escalator she has a second syncopal event. No seizure activity. Currently she is feeling better. She is never had a dysrhythmia that she is aware of. Physical Examination: Well-appearing older female accompanied by her . Vital signs are stable and afebrile. Percent on room air. Orthostatic vital signs negative. HEENT exam unremarkable. Pupils round reactive light. No facial droop. Normal speech. No facial or head trauma. C-spine nontender. Trachea midline. No lymphadenopathy. Lungs clear to auscultation bilaterally. Heart regular rate and rhythm no murmur rate of about 60. Abdomen is soft and nontender normal bowel sounds no peritoneal signs. She is moving all 4 extremities. Neurovascular intact. Equal symmetrical radial pulses. 5 out of 5 product coordinator strength. Dorsi plantar flexion intact. Calves are nontender without edema. Neurologically she is awake and alert with no focal motor or sensory deficits. NIH score is 0. Fingertip to nose within normal limits. Normal speech. Test Results: Chest x-ray one view no acute abnormality history of prior pericardial effusion but notes no change in the chest x-ray from prior. EKG sinus rhythm rate of 60 with a left bundle branch block is been seen on a prior. CBC White count 7 hemoglobin 14. No bands. Lites lites unremarkable BUN 28 creatinine 1.4. Troponin less than 0.05. Emergency Department Course and Treatment: She will undergo a cardiac workup. Repeat exam at 1557 patient is doing well. I discussed with her and her my concern for a dysrhythmia causing syncope and they are comfortable with admission. Treatment Plan: I spoke to the hospitalist about admission. Disposition: Admission Impression: Acute syncope of uncertain etiology History of CAD, cardiac stent, left bundle branch block and prior pericardial effusion This note was generated with [employer] dictation software. It may contain incorrect words, spelling, and punctuation that were not noted in review of the chart prior to signing ED Disposition - Plan for ED Patient: Referrals: Wesley Weinberg III, MD [Primary Care Provider] -
[2018-12-13 15:25] LABS: Anion Gap 5 (5-15); BUN 28 mg/dL (7-18); BUN/Creat Ratio 19.4 RATIO (10-20); Calcium,Total 8.7 mg/dL (8.5-10.1); Chloride 99 mmol/L (98-107); Creatinine, Serum 1.44 mg/dL (0.55-1.02); EST Glomerular Filtration Rate 38 mL/min (>60); Est Glom Filt Rate - Afr Amer 46 mL/min (>60); Estimated Creatinine Clearance 27.61 ml/min; Glucose 100 mg/dL (74-106); Potassium 3.5 mmol/L (3.5-5.1); Sodium Level 137 mmol/L (136-145)
--- NOTE | 2018-12-13 15:55 | PCM.HP.STD ---
Problem List (1) Syncope and collapse Status: Acute (2) LBBB (left bundle branch block) Status: Chronic (3) Cardiomyopathy in other diseases classified elsewhere Status: Chronic (4) Ischemic cardiomyopathy Status: Chronic (5) Paroxysmal tachycardia Status: Chronic (6) Bilateral carotid artery stenosis Status: Chronic (7) Hyperlipidemia Status: Chronic Qualifiers: Hyperlipidemia type: unspecified Qualified Code(s): E78.5 - Hyperlipidemia, unspecified (8) Hypertension Status: Chronic Qualifiers: Hypertension type: essential hypertension Qualified Code(s): I10 - Essential (primary) hypertension (9) Atherosclerotic heart disease of [place] coronary artery without angina pectoris Status: Chronic Qualifiers: [place] vs. transplanted heart: [place] heart Qualified Code(s): I25.10 - Atherosclerotic heart disease of [place] coronary artery without angina pectoris Comment: PTCA/NICO of the LAD 02/23/10 (10) CKD (chronic kidney disease) stage 3, GFR 30-59 ml/min Status: Chronic History of Present Illness Date of Admission: 12/13/18 Chief Complaint: Syncope The patient is a 78 y/o F w/ PMHx: HTN, HLD, CKD stage III, CAD s/p PCI LAD 2009, Ischemic Cardiomyopathy, Paroxysmal tachycardia, History of BL carotid artery stenosis who presents to the [facility] ED on 12/13/18 with history of syncopal event twice on day of ED presentation with prior history of syncopal event approximately 4 years prior noted to occur in a similar fashion to current presentation noting initial episode only near syncopal with no loss of consciousness occurring while [place] with sudden onset lightheadedness with no associated dizziness or vision changes with subjective bilateral lower extremity weakness, held in supported by her with eventual improvement and attempt to walk out of the mall however she had recurrent event and at that time had loss of consciousness but this was very transient and lasted less than 1 minute with again similar presentation of lightheadedness prior to onset and she noted discontinued somewhat following resolution prompting her eventual decision to evaluated in the ED. Work-up in the ED included T 97.3, heart rate 60, BP 136/73, orthostatics performed and not remarkable, respiratory rate 16, 97% on room air, CBC with WBC 7.8, hemoglobin 13.1, platelet 124 with mild shift, BMP with carbon dioxide 33, BUN/Cr 28/1.44, trop < 0.015, chest x-ray with no acute findings with chronic changes, EKG w/ sinus rhythm with stable appearing left bundle branch block with no acute evidence of ischemia. Past Medical History Past Medical History (Chronic Problems): Chronic Problems (Last Reviewed 04/19/18 @ 13:35 by Hina Jane) CKD (chronic kidney disease) stage 3, GFR 30-59 ml/min (Chronic) Presence of stent in coronary artery (Chronic ~02/23/10) PTCA/NICO of the LAD 02/23/10 LBBB (left bundle branch block) (Chronic) Cardiomyopathy in other diseases classified elsewhere (Chronic) Ischemic cardiomyopathy (Chronic) Paroxysmal tachycardia (Chronic) Bilateral carotid artery stenosis (Chronic) Hyperlipidemia (Chronic) Hypertension (Chronic) Atherosclerotic heart disease of [place] coronary artery without angina pectoris (Chronic) PTCA/NICO of the LAD 02/23/10 Medical History: Medical History (Last Reviewed 04/19/18 @ 13:35 by Hina Jane) LBBB (left bundle branch block) (Acute) I44.7 Cardiomyopathy in other diseases classified elsewhere (Chronic) I43 Ischemic cardiomyopathy (Chronic) I25.5 Paroxysmal tachycardia (Acute) I47.9 Syncope and collapse (Acute) R55 Bilateral carotid artery stenosis (Chronic) I65.23 Hyperlipidemia (Chronic) E78.5 Hypertension (Chronic) I10 Atherosclerotic heart disease of [place] coronary artery without angina pectoris (Chronic) I25.10 PTCA/NICO of the LAD 02/23/10 Allergies oxybutynin Allergy (Verified 12/13/18 13:54) Unknown lisinopril Adverse Reaction (Verified 12/13/18 13:54) Other Home Medications: Ambulatory Orders Medication Instructions Recorded carvedilol 12.5 mg tablet 12.5 mg PO BID #180 tab 01/02/18 Aspirin E.C. [Ecotrin] 325 mg PO DAILY@0800 02/17/18 Fluoxetine [Prozac] 20 mg PO DAILY 02/17/18 Multivitamin [Multiple Vitamins] 1 ea PO DAILY 02/17/18 Atorvastatin Calcium [Lipitor] 10 mg PO DAILY 12/13/18 Calcium Carbonate/Vitamin D3 1 tab PO DAILY 12/13/18 [Calcium 600-Vit D3 200 Tablet] Cholecalciferol (Vitamin D3) 2,000 unit PO DAILY 12/13/18 [D3-2000] Clopidogrel Bisulfate [Clopidogrel] 75 mg PO DAILY 12/13/18 Loperamide HCl [Imodium A-D] 2 mg PO PRN PRN 12/13/18 Losartan Potassium 50 mg PO DAILY 12/13/18 Surgical History: Surgical History (Last Reviewed 04/19/18 @ 13:35 by Hina Jane) Presence of stent in coronary artery (Chronic) Onset Date: ~02/23/10 Z95.5 PTCA/NICO of the LAD 02/23/10 Postsurgical percutaneous transluminal coronary angioplasty (PTCA) status Onset Date: ~02/23/10 Z98.61 PTCA/NICO of the LAD 02/23/10 History of breast biopsy Z98.890 Surgical History: - - PCI, breast biopsy. 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 Paternal History Items: - - Patient is unsure but suspects that her father had a history of possibly heart disease. Review of Systems Constitutional: Reports: Malaise, Weakness, Fatigue. Denies: Chills, Fever, Weight Change HEENT: Denies: Head Aches, Sinus Congestion, Sinus Drainage Cardiovascular: Reports: Light Headedness, Syncope. Denies: Chest Pain, Palpitations Respiratory: Denies: Cough, Shortness of Breath, Shortness of breath at rest, Shortness of breath upon exertion, Sputum production, Wheezing Gastrointestinal: Denies: Abdominal Pain, Nausea, Vomiting Genitourinary: Denies: Dysuria Musculoskeletal: Denies: Joint Pain, Joint Tenderness Skin: Denies: Rash, Wounds Neurological: Denies: Numbness, Tingling, Focal weakness Psychiatric: Reports: Anxiety, Depression. Denies: Homicidal Ideations, Suicidal Ideations Hematologic/ Lymphatic: Denies: Easy Bruising, Easy Bleeding VTE Information - Inpt Only VTE Present on Admission: No VTE Mechan Device Prophylaxis: SCD's VTE Pharm Prophylaxis ordered?: Yes Subjective: Seated upright in ED bed, currently denies any acute lightheadedness or dizziness, no acute distress currently. Objective: Physical Examination: General: awake, alert, oriented x 3 and cooperative, seated upright in the ED bed in no apparent distress. Skin: normal color, turgor, no icterus, cyanosis. HEENT: AT/NC, EOMI, PERRLA, only dry MM, no carotid bruits or JVD noted. Lungs: CTA bilaterally, moderate effort, mild decrease BL bases, no rales, ronchi or wheezing. Heart: Regular rate and rhythm; no gallop, rub audible. Abdomen: soft, NTTP, ND, normal BS, no HSM. Extremities: no cyanosis, clubbing, or edema. Neurological: patient awake, alert, oriented x 3; cognitive function intact; pupils equally reactive to light and accomodation; cranial nerves II-XII grossly normal, moving all 4 extremities, no focal deficits, strength mildly globally decreased. Psychiatric: affect appears normal, no acute evidence of depressive or anxiety feelings. - Physical Exam Vital Signs Temp Pulse Resp BP Pulse Ox 97.3 F L 69 18 183/74 H 98 12/13/18 13:54 12/13/18 15:06 12/13/18 15:06 12/13/18 15:06 12/13/18 15:06 Oxygen Delivery Method Room Air Weight: 116 lb Body Mass Index (BMI) 19.9 Finger Stick Blood Glucose 123 Laboratory Tests Past 24 Hrs 12/13/18 12/13/18 14:10 14:10 WBC 7.8 RBC 5.09 Hgb 13.1 Hct 43.5 MCV 85.5 MCH 25.7 L MCHC 30.1 L RDW 15.0 H RDW Differential 46.5 H Plt Count 124 L MPV 11.4 Immature Gran % (Auto) 0.300 Neut % (Auto) 74.1 H Lymph % (Auto) 11.9 L Young % (Auto) 12.1 H Eos % (Auto) 1.5 Baso % (Auto) 0.1 Absolute Neuts (auto) 5.8 Absolute Lymphs (auto) 0.93 Total Counted Pending Sodium 137 Potassium 3.5 Chloride 99 Carbon Dioxide 33.0 H Anion Gap 5 BUN 28 H Creatinine 1.44 H Estim Creat Clear Calc 27.61 Est GFR (MDRD) Af Amer 46 L Est GFR (MDRD) Non-Af 38 L BUN/Creatinine Ratio 19.4 Glucose 100 Calcium 8.7 Troponin I < 0.015 POC Glucose 12/13/18 15:16 POC Glucose 123 H Assessment/Plan All Active Problems (Last Reviewed 04/19/18 @ 13:35 by Hina Jane) Syncope and collapse (Acute) The patient is a 78 y/o F w/ PMHx: HTN, HLD, CKD stage III, CAD s/p PCI LAD 2009, Ischemic Cardiomyopathy, Paroxysmal tachycardia, History of BL carotid artery stenosis who presents to the [facility] ED on 12/13/18 with history of syncopal event twice on day of ED presentation. (1) Syncopal Event: Unclear etiololgy, EKG in ED w/ sinus rhythm without evidence of acute ischemia, CXR w/ no acute cardiopulmonary findings, initial trop normal. Will admit to PCU, place on a monitored bed to assure no acute myocardial infarction with serial cardiac enzymes and EKGs. Will maintain on fall precautions, repeat AM orthostatic VS, continue IVFs, obtain carotid US given history and obtain ECHO. (2) Hypertension: Continue home regimen including Coreg, losartan with hold parameters, PRN hydralazine. (3) Hyperlipidemia: Continue home statin regimen. (4) CAD: s/p PCI LAD 2009, continue home aspirin, Plavix, statin, Coreg regimen. (5) Ischemic Cardiomyopathy: Continue home aspirin, Plavix, statin, Coreg, losartan regimen, epicardium as noted pending. (6) Paroxysmal tachycardia: Not evident upon initial ED presentation, maintain on telemetry, continue home Coreg regimen. (7) History of BL carotid artery stenosis: No history of intervention prior, carotid ultrasound pending as noted. (8) CKD stage III: Admission BUN/Cr 28/1.44, baseline from prior appears 1.3-1.4, stable, hydrating gently, repeat BMP in AM. (9) Anxiety and Depression: Continue home Prozac regimen however may need to be renally dosed pending repeat BMP function a.m. (10) DVT Prophylaxis: SCDs, heparin. Code Visit OBSV E&M: 31125 Initial observation care L3
[2018-12-13 16:01] LABS: Platelet Estimate SLT DEC (ADEQ); Platelet Morphology LARGE
--- NOTE | 2018-12-13 16:01 | NURSING ---
PCU SYNCOPE WHITE
[2018-12-13 16:02] LABS: Red Cell Morphology NORM C+C NORMAL (NORM C&C)
--- NOTE | 2018-12-13 16:18 | HP.PCM_ITS ---
Problem List (1) Syncope and collapse Status: Acute (2) LBBB (left bundle branch block) Status: Chronic (3) Cardiomyopathy in other diseases classified elsewhere Status: Chronic (4) Ischemic cardiomyopathy Status: Chronic (5) Paroxysmal tachycardia Status: Chronic (6) Bilateral carotid artery stenosis Status: Chronic (7) Hyperlipidemia Status: Chronic Qualifiers: Hyperlipidemia type: unspecified Qualified Code(s): E78.5 - Hyperlipidemia, unspecified (8) Hypertension Status: Chronic Qualifiers: Hypertension type: essential hypertension Qualified Code(s): I10 - Essential (primary) hypertension (9) Atherosclerotic heart disease of [place] coronary artery without angina pectoris Status: Chronic Qualifiers: [place] vs. transplanted heart: [place] heart Qualified Code(s): I25.10 - Atherosclerotic heart disease of [place] coronary artery without angina pectoris Comment: PTCA/NICO of the LAD 02/23/10 (10) CKD (chronic kidney disease) stage 3, GFR 30-59 ml/min Status: Chronic History of Present Illness Date of Admission: 12/13/18 Chief Complaint: Syncope The patient is a 78 y/o F w/ PMHx: HTN, HLD, CKD stage III, CAD s/p PCI LAD 2009, Ischemic Cardiomyopathy, Paroxysmal tachycardia, History of BL carotid artery stenosis who presents to the [facility] ED on 12/13/18 with history of syncopal event twice on day of ED presentation with prior history of syncopal event approximately 4 years prior noted to occur in a similar fashion to current presentation noting initial episode only near syncopal with no loss of consciousness occurring while she was walking the mall with sudden onset lightheadedness with no associated dizziness or vision changes with subjective bilateral lower extremity weakness, held in supported by her with eventual improvement and attempt to walk out of the mall however she had recurrent event and at that time had loss of consciousness but this was very transient and lasted less than 1 minute with again similar presentation of lightheadedness prior to onset and she noted discontinued somewhat following resolution prompting her eventual decision to evaluated in the ED. Work-up in the ED included T 97.3, heart rate 60, BP 136/73, orthostatics performed and not remarkable, respiratory rate 16, 97% on room air, CBC with WBC 7.8, hemoglobin 13.1, platelet 124 with mild shift, BMP with carbon dioxide 33, BUN/Cr 28/1.44, trop < 0.015, chest x-ray with no acute findings with chronic changes, EKG w/ sinus rhythm with stable appearing left bundle branch block with no acute evidence of ischemia. Past Medical History Past Medical History (Chronic Problems): Chronic Problems (Last Reviewed 04/19/18 @ 13:35 by Hina Jane) CKD (chronic kidney disease) stage 3, GFR 30-59 ml/min (Chronic) Presence of stent in coronary artery (Chronic ~02/23/10) PTCA/NICO of the LAD 02/23/10 LBBB (left bundle branch block) (Chronic) Cardiomyopathy in other diseases classified elsewhere (Chronic) Ischemic cardiomyopathy (Chronic) Paroxysmal tachycardia (Chronic) Bilateral carotid artery stenosis (Chronic) Hyperlipidemia (Chronic) Hypertension (Chronic) Atherosclerotic heart disease of [place] coronary artery without angina pectoris (Chronic) PTCA/NICO of the LAD 02/23/10 Medical History: Medical History (Last Reviewed 04/19/18 @ 13:35 by Hina Jane) LBBB (left bundle branch block) (Acute) I44.7 Cardiomyopathy in other diseases classified elsewhere (Chronic) I43 Ischemic cardiomyopathy (Chronic) I25.5 Paroxysmal tachycardia (Acute) I47.9 Syncope and collapse (Acute) R55 Bilateral carotid artery stenosis (Chronic) I65.23 Hyperlipidemia (Chronic) E78.5 Hypertension (Chronic) I10 Atherosclerotic heart disease of [place] coronary artery without angina pectoris (Chronic) I25.10 PTCA/NICO of the LAD 02/23/10 Allergies oxybutynin Allergy (Verified 12/13/18 13:54) Unknown lisinopril Adverse Reaction (Verified 12/13/18 13:54) Other Home Medications: Ambulatory Orders Medication Instructions Recorded carvedilol 12.5 mg tablet 12.5 mg PO BID #180 tab 01/02/18 Aspirin E.C. [Ecotrin] 325 mg PO DAILY@0800 02/17/18 Fluoxetine [Prozac] 20 mg PO DAILY 02/17/18 Multivitamin [Multiple Vitamins] 1 ea PO DAILY 02/17/18 Atorvastatin Calcium [Lipitor] 10 mg PO DAILY 12/13/18 Calcium Carbonate/Vitamin D3 1 tab PO DAILY 12/13/18 [Calcium 600-Vit D3 200 Tablet] Cholecalciferol (Vitamin D3) 2,000 unit PO DAILY 12/13/18 [D3-2000] Clopidogrel Bisulfate [Clopidogrel] 75 mg PO DAILY 12/13/18 Loperamide HCl [Imodium A-D] 2 mg PO PRN PRN 12/13/18 Losartan Potassium 50 mg PO DAILY 12/13/18 Surgical History: Surgical History (Last Reviewed 04/19/18 @ 13:35 by Hina Jane) Presence of stent in coronary artery (Chronic) Onset Date: ~02/23/10 Z95.5 PTCA/NICO of the LAD 02/23/10 Postsurgical percutaneous transluminal coronary angioplasty (PTCA) status Onset Date: ~02/23/10 Z98.61 PTCA/NICO of the LAD 02/23/10 History of breast biopsy Z98.890 Surgical History: - - PCI, breast biopsy. 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 Paternal History Items: - - Patient is unsure but suspects that her father had a history of possibly heart disease. Review of Systems Constitutional: Reports: Malaise, Weakness, Fatigue. Denies: Chills, Fever, Weight Change HEENT: Denies: Head Aches, Sinus Congestion, Sinus Drainage Cardiovascular: Reports: Light Headedness, Syncope. Denies: Chest Pain, Palpitations Respiratory: Denies: Cough, Shortness of Breath, Shortness of breath at rest, Shortness of breath upon exertion, Sputum production, Wheezing Gastrointestinal: Denies: Abdominal Pain, Nausea, Vomiting Genitourinary: Denies: Dysuria Musculoskeletal: Denies: Joint Pain, Joint Tenderness Skin: Denies: Rash, Wounds Neurological: Denies: Numbness, Tingling, Focal weakness Psychiatric: Reports: Anxiety, Depression. Denies: Homicidal Ideations, Suicidal Ideations Hematologic/ Lymphatic: Denies: Easy Bruising, Easy Bleeding VTE Information - Inpt Only VTE Present on Admission: No VTE Mechan Device Prophylaxis: SCD's VTE Pharm Prophylaxis ordered?: Yes Subjective: Seated upright in ED bed, currently denies any acute lightheadedness or dizziness, no acute distress currently. Objective: Physical Examination: General: awake, alert, oriented x 3 and cooperative, seated upright in the ED bed in no apparent distress. Skin: normal color, turgor, no icterus, cyanosis. HEENT: AT/NC, EOMI, PERRLA, only dry MM, no carotid bruits or JVD noted. Lungs: CTA bilaterally, moderate effort, mild decrease BL bases, no rales, ronchi or wheezing. Heart: Regular rate and rhythm; no gallop, rub audible. Abdomen: soft, NTTP, ND, normal BS, no HSM. Extremities: no cyanosis, clubbing, or edema. Neurological: patient awake, alert, oriented x 3; cognitive function intact; pupils equally reactive to light and accomodation; cranial nerves II-XII grossly normal, moving all 4 extremities, no focal deficits, strength mildly globally decreased. Psychiatric: affect appears normal, no acute evidence of depressive or anxiety feelings. - Physical Exam Vital Signs Temp Pulse Resp BP Pulse Ox 97.3 F L 69 18 183/74 H 98 12/13/18 13:54 12/13/18 15:06 12/13/18 15:06 12/13/18 15:06 12/13/18 15:06 Oxygen Delivery Method Room Air Weight: 116 lb Body Mass Index (BMI) 19.9 Finger Stick Blood Glucose 123 Laboratory Tests Past 24 Hrs 12/13/18 12/13/18 14:10 14:10 WBC 7.8 RBC 5.09 Hgb 13.1 Hct 43.5 MCV 85.5 MCH 25.7 L MCHC 30.1 L RDW 15.0 H RDW Differential 46.5 H Plt Count 124 L MPV 11.4 Immature Gran % (Auto) 0.300 Neut % (Auto) 74.1 H Lymph % (Auto) 11.9 L [place] % (Auto) 12.1 H Eos % (Auto) 1.5 Baso % (Auto) 0.1 Absolute Neuts (auto) 5.8 Absolute Lymphs (auto) 0.93 Total Counted Pending Sodium 137 Potassium 3.5 Chloride 99 Carbon Dioxide 33.0 H Anion Gap 5 BUN 28 H Creatinine 1.44 H Estim Creat Clear Calc 27.61 Est GFR (MDRD) Af Amer 46 L Est GFR (MDRD) Non-Af 38 L BUN/Creatinine Ratio 19.4 Glucose 100 Calcium 8.7 Troponin I < 0.015 POC Glucose 12/13/18 15:16 POC Glucose 123 H Assessment/Plan All Active Problems (Last Reviewed 04/19/18 @ 13:35 by Hina Jane) Syncope and collapse (Acute) The patient is a 78 y/o F w/ PMHx: HTN, HLD, CKD stage III, CAD s/p PCI LAD 2009, Ischemic Cardiomyopathy, Paroxysmal tachycardia, History of BL carotid artery stenosis who presents to the [facility] ED on 12/13/18 with history of syncopal event twice on day of ED presentation. (1) Syncopal Event: Unclear etiololgy, EKG in ED w/ sinus rhythm without evidence of acute ischemia, CXR w/ no acute cardiopulmonary findings, initial trop normal. Will admit to PCU, place on a monitored bed to assure no acute myocardial infarction with serial cardiac enzymes and EKGs. Will maintain on fall precautions, repeat AM orthostatic VS, continue IVFs, obtain carotid US given history and obtain ECHO. (2) Hypertension: Continue home regimen including Coreg, losartan with hold parameters, PRN hydralazine. (3) Hyperlipidemia: Continue home statin regimen. (4) CAD: s/p PCI LAD 2009, continue home aspirin, Plavix, statin, Coreg regimen. (5) Ischemic Cardiomyopathy: Continue home aspirin, Plavix, statin, Coreg, losartan regimen, epicardium as noted pending. (6) Paroxysmal tachycardia: Not evident upon initial ED presentation, maintain on telemetry, continue home Coreg regimen. (7) History of BL carotid artery stenosis: No history of intervention prior, carotid ultrasound pending as noted. (8) CKD stage III: Admission BUN/Cr 28/1.44, baseline from prior appears 1.3- 1.4, stable, hydrating gently, repeat BMP in AM. (9) Anxiety and Depression: Continue home Prozac regimen however may need to be renally dosed pending repeat BMP function a.m. (10) DVT Prophylaxis: SCDs, heparin. Code Visit OBSV E&M: 49514 Initial observation care L3
--- NOTE | 2018-12-13 16:47 | ECHOD_ITS ---
Reason For Study: Syncope/Near Syncope Procedure This was a 2D Doppler, Color Flow transthoracic echocardiogram. Exam performed portable in patient room. Left Ventricle Normal LV size. Mild concentric left ventricular hypertrophy. Left ventricular systolic function is normal. The estimated ejection fraction is 60 %. Stage 1 diastolic dysfunction. No regional wall motion abnormalities noted. Right Ventricle Normal RV size. Normal systolic function. Atria Normal left atrium. Normal right atrium. Mitral Valve Normal mitral valve. Tricuspid Valve Normal tricuspid valve. Mild (1+) tricuspid valve insufficiency. Pulmonary artery systolic pressure is 27 mmHg. Aortic Valve Normal aortic valve. Trisinus/trileaflet aortic valve. Pulmonic Valve Normal pulmonic valve. Great Vessels Normal aortic root. The pulmonary artery is normal size. Normal inferior vena cava. Pericardium/Pleural Small pericardial effusion. There are no echocardiographic indications of cardiac tamponade. MMode/2D Measurements & Calculations LVIDd: 3.7 cm IVSd: 1.3 cm Ao root diam: 2.4 cm LVIDs: 2.3 cm LVPWd: 1.3 cm RVDd: 3.2 cm FS: 37.7 % LAV(MOD-bp): 40.2 ml LVAd ap4: 18.5 cm2 SV(MOD-sp4): 23.1 ml LAV(MOD-bp) Indexed: 25.9 ml/m2 EDV(MOD-sp4): 42.6 ml LAV(MOD-sp2): 48.1 ml EDV(sp4-el): 43.3 ml LAV(MOD-sp4): 33.1 ml LVAs ap4: 11.4 cm2 ESV(MOD-sp4): 19.6 ml ESV(sp4-el): 18.7 ml EF(MOD-sp4): 54.1 % EF(sp4-el): 56.8 % SV(sp4-el): 24.6 ml LA A4 area: 14.8 cm2 LA dimension(2D): 3.3 cm RA A4 area: 13.6 cm2 Doppler Measurements & Calculations MV E max smith: 86.1 cm/sec Lat Peak E' Smith: 6.1 cm/sec Med Peak E' Smith: 6.5 cm/sec MV A max smith: 101.5 cm/sec E/E' lat: 14.0 E/E' med: 13.3 MV E/A: 0.85 Ao V2 max: 157.8 cm/sec LV V1 max: 126.8 cm/sec PA V2 max: 106.4 cm/sec Ao max P.0 mmHg LV V1 max P.4 mmHg Ao V2 mean: 112.2 cm/sec Ao mean P.5 mmHg Ao V2 VTI: 35.8 cm TR max smith: 248.9 cm/sec TR max P.8 mmHg Interpretation Summary Normal LV size. Left ventricular systolic function is normal. The estimated ejection fraction is 60 %. Stage 1 diastolic dysfunction. Pulmonary artery systolic pressure is 27 mmHg. There are no echocardiographic indications of cardiac tamponade. Small pericardial effusion. Compared to previous study, the left ventricular systolic function is the same.. Compared to prior study, there is no significant change. Ordering Physician: Gale Weldon Referring Physician: Wesley Weinberg Performed By: Emmanuelle Alexandra, AMINAH, RVT
--- NOTE | 2018-12-13 16:47 | CDU_ITS ---
Reason For Study: Syncope Rt. Velocities/BP Lt. Velocities/BP Prox CCA 68/15 cm/sec. Prox CCA 67/9 cm/sec. Mid CCA 69/10 cm/sec. Mid CCA 66/9 cm/sec. Dist CCA 61/13 cm/sec. Dist CCA 70/14 cm/sec. Prox ICA 145/20 cm/sec. Prox ICA 62/14 cm/sec. Mid ICA 84/18 cm/sec. Mid ICA 85/22 cm/sec. Dist ICA 114/27 cm/sec. Dist ICA 92/17 cm/sec. Rt. ICA/CCA = 2.10. Lt. ICA/CCA = 1.39. Prox ECA 69/6 cm/sec. Prox ECA 73/6 cm/sec. Rt. Vert. 61/10 cm/sec. Lt. Vert. 62/20 cm/sec. Right Extracranial There is heterogeneous, irregular atherosclerotic plaque noted in the right common carotid artery. There is homogeneous, irregular atherosclerotic plaque noted in the right internal carotid artery. There is intimal thickening but no significant atherosclerotic plaque noted in the right external carotid artery. Antegrade flow is noted in the right vertebral artery. Left Extracranial There is heterogeneous, smooth atherosclerotic plaque noted in the left common carotid artery. There is heterogeneous, irregular atherosclerotic plaque noted in the left internal carotid artery. There is intimal thickening but no significant atherosclerotic plaque noted in the left external carotid artery. Antegrade flow is noted in the left vertebral artery. Procedure Carotid Duplex 10118. Exam performed in department. Interpretation Summary Minimal plague at the proximal right internal carotid with 50-69% stenosis, likely closer to 50% Normal flow right external carotid Minimal calcific plague within the left proximal internal carotid with <50% stenosis. Normal flow left external carotid Patent and antegrade vertebrals bilaterally Ordering Physician: Gale Weldon Referring Physician: Wesley Weinberg Performed By: Emmanuelle Alexandra, AMINAH, RVT
[2018-12-13 17:15] LABS: Magnesium 1.8 mg/dL (1.6-2.6)
[2018-12-13] MEDS: 0.9% Normal Saline 1,000 ML 100 ML IV (17:36)
[2018-12-13] MEDS: Carvedilol 12.5 MG Tablet PO (17:46)
[2018-12-13 18:28] LABS: Thyroid Stim Hormone (TSH) 1.08 uIU/mL (0.358-3.74)
[2018-12-14] VITALS (17 sets, daily range): BP systolic 129–173; BP diastolic 54–78; PULSE 60–82; RESP 16–18; TEMP 35.8–37.2; O2SAT 95–97
[2018-12-14] MEDS: hydrALAZINE 20 MG/ML Vial 10 MG IV (03:35)
[2018-12-14] MEDS: 0.9% Normal Saline 1,000 ML 100 ML IV ×3 (03:38→21:28)
--- NOTE | 2018-12-14 05:55 | EKG12_ITS ---
Test Reason : Blood Pressure : / mmHG Vent. Rate : 064 BPM Atrial Rate : 064 BPM P-R Int : 140 ms QRS Dur : 116 ms QT Int : 480 ms P-R-T Axes : 062 -46 083 degrees QTc Int : 495 ms Normal sinus rhythm Left axis deviation Inferior infarct (cited on or before 14-DEC-2018) Anteroseptal infarct (cited on or before 14-DEC-2018) ST & T wave abnormality, consider lateral ischemia Intra ventricular conduction delay Abnormal ECG When compared with ECG of 20-NOV-2018 08:06, Serial changes of Anteroseptal infarct Present Confirmed by DANNIE REA ([id number]), scientific publications editor RUBEN JANG ([id number]) on 12/20/2018 1:42:55 PM Referred By: Gale Weldon Confirmed By:DANNIE REA
[2018-12-14 07:33] LABS: Absolute Lymphocyte Count 0.74 X10^3/ul (0.83-4.51); Absolute Neutrophil Count 6.9 X10^3/uL (2.0-7.7); Basophil# 0.01 X10^3/uL; Basophil% 0.1 % (0-1); Eosinophil# 0.18 X10^3/uL; Eosinophils% 2.1 % (0-5); Hemoglobin 12.6 g/dl (12.0-15.0); Lymphocyte # 0.74 X10^3/ul (4.0); Lymphocyte % 8.6 % (19-41); Mean Corp Hgb Conc 30.7 g/gl (32-36); Mean Corpuscular Hgb 25.9 pg (27.0-32.0); Mean Corpuscular Volume 84.2 fL (81-99); Monocyte# 0.77 X10^3/uL; Monocyte% 8.9 % (0-10); Neutrophil # 6.92 X10^3/uL (2.7-7.7); Neutrophil % 80.1 % (47-70); Platelet Count 121 K/mm3 (150-450); RBC Distribution Width CV 15.1 % (11.6-14.6); RBC Distribution Width SD 46.6 fl (35.1-43.9); Red Blood Count 4.87 M/mm3 (4.2-5.4); White Blood Count 8.6 K/mm3 (4.4-11.0)
[2018-12-14 07:36] LABS: POSITIVE COUNT NO; POSITIVE DIFFERENTIAL NO; POSITIVE MORPHOLOGY NO
[2018-12-14 07:56] LABS: AST(SGOT) 20 U/L (15-37); Alanine Aminotransfer ALT/SGPT 16 U/L (13-56); Alkaline Phosphatase 91 U/L (45-117); Anion Gap 10 (5-15); BUN 22 mg/dL (7-18); Calcium,Total 8.1 mg/dL (8.5-10.1); Chloride 107 mmol/L (98-107); EST Glomerular Filtration Rate 51 mL/min (>60); Est Glom Filt Rate - Afr Amer 62 mL/min (>60); Estimated Creatinine Clearance 35.72 ml/min; Globulin 3.1 g/dL (2.2-4.2); Glucose 94 mg/dL (74-106); Potassium 3.2 mmol/L (3.5-5.1); Protein, Total 6.1 g/dL (6.4-8.2); Sodium Level 145 mmol/L (136-145)
[2018-12-14] MEDS: FLUoxetine 20 MG Capsule PO (08:55)
[2018-12-14] MEDS: Carvedilol 12.5 MG Tablet PO ×2 (08:55→16:51)
[2018-12-14] MEDS: Clopidogrel Bisulfate 75 MG Tablet PO (08:55)
[2018-12-14] MEDS: Aspirin E.C. 325 MG Tablet PO (08:55)
[2018-12-14] MEDS: Losartan Potassium 50 MG Tablet PO (09:00)
--- NOTE | 2018-12-14 14:53 | PCM.PROGNOTE ---
Subjective: Patient seen and examined. Denies further dizziness/syncope. Denies chest pain, shortness of breath. Patient reports she has been having ongoing weakness and dizziness for a while prior to syncopal episodes before admission. - Physical Exam General: Alert, Oriented x3, Cooperative HEENT: Atraumatic, PERRLA, EOMI, Normocephalic Neck: Supple, No JVD, Negative Carotid Bruits Lungs: Clear to auscultation, Normal air movement Cardiovascular: Regular rate, Regular Rhythm, Normal S1, Normal S2, No murmurs Abdomen: Bowel Sounds Present, Soft, Non Tender, Non-Distended Extremities: No clubbing, No cyanosis, No edema, Capillary Refill Less than 3 Seconds Skin: No rashes, No breakdown Musculoskeletal: No Tenderness to Palpation of Joints or Extremities Neurological: Cranial nerves II-XII grossly intact, Neuro grossly intact Psych/Mental Status: Normal Affect, Appropriate Vital Signs Temp Pulse Resp BP Pulse Ox 98.4 F 62 16 138/54 H 97 12/14/18 14:45 12/14/18 14:45 12/14/18 14:45 12/14/18 14:45 12/14/18 14:45 Oxygen Delivery Method Room Air Weight: 114 lb 10.246 oz Body Mass Index (BMI) 19.6 Finger Stick Blood Glucose 123 Orthostatic Vital Signs Start: 12/13/18 22:32 Freq: 0600 Status: Active Protocol: Activity Type Activity Date Activity User E-Sign Co-Sign Detail Recorded Client Recorded Date Recorded By Document 12/14/18 05:19 BB [id number] 12/14/18 05:22 BB 12/14/18 05:19 Orthostatic Vitals Standing -Blood Pressure (90/60-120/80) 129/55 H -Extremity Use Right Arm -Pulse Rate (60-100) 68 Sitting -Blood Pressure (90/60-120/80) 147/57 H -Extremity Use Right Arm -Pulse Rate (60-100) 71 Lying -Blood Pressure (90/60-120/80) 134/60 H -Extremity Use Right Arm -Pulse Rate (60-100) 70 Intake and Output for Last 24 Hours 12/12/18 12/13/18 12/14/18 23:59 23:59 23:59 Intake Total 1270 / 1270 1419 / 1419 Output Total 2 / 2 Balance 1270 / 1270 1417 / 1417 Laboratory Tests Past 24 Hrs 12/13/18 12/13/18 12/13/18 14:10 14:10 14:10 WBC 7.8 RBC 5.09 Hgb 13.1 Hct 43.5 MCV 85.5 MCH 25.7 L MCHC 30.1 L RDW 15.0 H RDW Differential 46.5 H Plt Count 124 L MPV 11.4 Immature Gran % (Auto) 0.300 Neut % (Auto) 74.1 H Lymph % (Auto) 11.9 L Alfalfa % (Auto) 12.1 H Eos % (Auto) 1.5 Baso % (Auto) 0.1 Absolute Neuts (auto) 5.8 Absolute Lymphs (auto) 0.93 Total Counted Not Reportable Platelet Estimate SLT DEC Plt Morphology Comment LARGE RBC Morphology NORM C+C Sodium 137 Potassium 3.5 Chloride 99 Carbon Dioxide 33.0 H Anion Gap 5 BUN 28 H Creatinine 1.44 H Estim Creat Clear Calc 27.61 Est GFR (MDRD) Af Amer 46 L Est GFR (MDRD) Non-Af 38 L BUN/Creatinine Ratio 19.4 Glucose 100 Calcium 8.7 Magnesium 1.8 Total Bilirubin AST ALT Alkaline Phosphatase Troponin I < 0.015 Total Protein Albumin Globulin Albumin/Globulin Ratio TSH 12/13/18 12/13/18 12/14/18 17:35 20:25 06:40 WBC 8.6 RBC 4.87 Hgb 12.6 Hct 41.0 MCV 84.2 MCH 25.9 L MCHC 30.7 L RDW 15.1 H RDW Differential 46.6 H Plt Count 121 L MPV 12.0 Immature Gran % (Auto) 0.200 Neut % (Auto) 80.1 H Lymph % (Auto) 8.6 L Alfalfa % (Auto) 8.9 Eos % (Auto) 2.1 Baso % (Auto) 0.1 Absolute Neuts (auto) 6.9 Absolute Lymphs (auto) 0.74 L Total Counted Not Reportable Platelet Estimate Plt Morphology Comment RBC Morphology Sodium Potassium Chloride Carbon Dioxide Anion Gap BUN Creatinine Estim Creat Clear Calc Est GFR (MDRD) Af Amer Est GFR (MDRD) Non-Af BUN/Creatinine Ratio Glucose Calcium Magnesium Total Bilirubin AST ALT Alkaline Phosphatase Troponin I < 0.015 < 0.015 Total Protein Albumin Globulin Albumin/Globulin Ratio TSH 1.08 12/14/18 06:40 WBC RBC Hgb Hct MCV MCH MCHC RDW RDW Differential Plt Count MPV Immature Gran % (Auto) Neut % (Auto) Lymph % (Auto) Alfalfa % (Auto) Eos % (Auto) Baso % (Auto) Absolute Neuts (auto) Absolute Lymphs (auto) Total Counted Platelet Estimate Plt Morphology Comment RBC Morphology Sodium 145 Potassium 3.2 L Chloride 107 Carbon Dioxide 28.0 Anion Gap 10 BUN 22 H Creatinine 1.10 H Estim Creat Clear Calc 35.72 Est GFR (MDRD) Af Amer 62 Est GFR (MDRD) Non-Af 51 L BUN/Creatinine Ratio 20.0 Glucose 94 Calcium 8.1 L Magnesium Total Bilirubin 0.60 AST 20 ALT 16 Alkaline Phosphatase 91 Troponin I Total Protein 6.1 L Albumin 3.0 L Globulin 3.1 Albumin/Globulin Ratio 1.0 TSH POC Glucose 12/13/18 15:16 POC Glucose 123 H Medical Necessity - Tobacco Use Smoking Status: Never smoker Tobacco Use: Non-smoker Assessment/Plan All Active Problems (Last Reviewed 04/19/18 @ 13:35 by Hina Jane) Syncope and collapse (Acute) 1. Syncope-chest x-ray unremarkable. Troponin negative. Orthostatic vitals negative although borderline. Echocardiogram showed an EF of 60%, stage I diastolic dysfunction, pulmonary artery systolic pressure 27 mmHg. No significant change compared to prior study. Given patient's ongoing symptoms of weakness and dizziness as well as history of CAD status post PCI in 2009, feel patient should have stress test to rule out ischemia. 2. CAD status post PCI-continue aspirin, statin, Plavix, beta-ava. Follows with Dr. Mcintosh. Most recent stress test 2013. 3. Hypertension-stable, continue home regimen. 4. Hyperlipidemia-continue statin. 5. Ischemic cardiomyopathy-continue aspirin, statin, Plavix, carvedilol, losartan. 6. History of bilateral carotid artery disease-carotid ultrasound pending. Previous carotid ultrasound from 08/2017 showed moderate stenosis of the right internal carotid with 50-69% stenosis and mild, less than 50% stenosis of the left internal carotid. 7. Chronic kidney disease stage III-stable, trend BMP. 8. Anxiety/depression-continue home Prozac regimen. DVT prophylaxis-heparin subcu This patient was seen by SKIP Haque under the supervision of Dr. Crawford.
[2018-12-15] VITALS (13 sets, daily range): BP systolic 124–170; BP diastolic 67–88; PULSE 60–68; RESP 16–18; TEMP 36.8–37; O2SAT 94–96
[2018-12-15 06:56] LABS: Anion Gap 6 (5-15); BUN 17 mg/dL (7-18); BUN/Creat Ratio 18.4 RATIO (10-20); Calcium,Total 7.7 mg/dL (8.5-10.1); Chloride 114 mmol/L (98-107); Creatinine, Serum 0.92 mg/dL (0.55-1.02); EST Glomerular Filtration Rate 63 mL/min (>60); Est Glom Filt Rate - Afr Amer 76 mL/min (>60); Estimated Creatinine Clearance 42.71 ml/min; Glucose 81 mg/dL (74-106); Potassium 4.1 mmol/L (3.5-5.1); Sodium Level 147 mmol/L (136-145)
[2018-12-15] MEDS: Aspirin E.C. 325 MG Tablet PO (08:27)
[2018-12-15] MEDS: Carvedilol 12.5 MG Tablet PO ×2 (08:27→16:13)
[2018-12-15] MEDS: Atorvastatin Calcium 10 MG Tablet PO (10:16)
[2018-12-15] MEDS: Losartan Potassium 50 MG Tablet PO (10:16)
[2018-12-15] MEDS: Clopidogrel Bisulfate 75 MG Tablet PO (10:16)
[2018-12-15] MEDS: FLUoxetine 20 MG Capsule PO (10:16)
--- NOTE | 2018-12-15 13:27 | PCM.PROGNOTE ---
Subjective: Patient seen and examined. Denies further dizziness, syncope. Plan for stress test in a.m. and carotid ultrasound. - Physical Exam General: Alert, Oriented x3, Cooperative HEENT: Atraumatic, PERRLA, EOMI, Normocephalic Neck: Supple, No JVD, Negative Carotid Bruits Lungs: Clear to auscultation, Normal air movement Cardiovascular: Regular rate, Regular Rhythm, Normal S1, Normal S2, No murmurs Abdomen: Bowel Sounds Present, Soft, Non Tender, Non-Distended Extremities: No clubbing, No cyanosis, No edema, Capillary Refill Less than 3 Seconds Skin: No rashes, No breakdown Musculoskeletal: No Tenderness to Palpation of Joints or Extremities Neurological: Cranial nerves II-XII grossly intact, Neuro grossly intact Psych/Mental Status: Normal Affect, Appropriate Vital Signs Temp Pulse Resp BP Pulse Ox 98.2 F 62 16 165/75 H 94 12/15/18 10:00 12/15/18 10:53 12/15/18 10:00 12/15/18 10:00 12/15/18 10:00 Oxygen Delivery Method Room Air Weight: 114 lb 10.246 oz Body Mass Index (BMI) 19.6 Finger Stick Blood Glucose 123 Orthostatic Vital Signs Start: 12/13/18 22:32 Freq: 0600 Status: Active Protocol: Activity Type Activity Date Activity User E-Sign Co-Sign Detail Recorded Client Recorded Date Recorded By Document 12/15/18 04:12 AML [id number] 12/15/18 04:13 AML 12/15/18 04:12 Orthostatic Vitals Standing -Blood Pressure (90/60-120/80) 157/75 H -Extremity Use Right Arm -Pulse Rate (60-100) 68 Sitting -Blood Pressure (90/60-120/80) 170/74 H -Extremity Use Right Arm -Pulse Rate (60-100) 65 Lying -Blood Pressure (90/60-120/80) 160/67 H -Extremity Use Right Arm -Pulse Rate (60-100) 66 Intake and Output for Last 24 Hours 12/13/18 12/14/18 12/15/18 23:59 23:59 23:59 Intake Total 1270 / 1270 2666 / 2666 1196 / 1196 Output Total 2 / 2 Balance 1270 / 1270 2664 / 2664 1196 / 1196 Laboratory Tests Past 24 Hrs 12/15/18 05:30 Sodium 147 H Potassium 4.1 Chloride 114 H Carbon Dioxide 27.0 Anion Gap 6 BUN 17 Creatinine 0.92 Estim Creat Clear Calc 42.71 Est GFR (MDRD) Af Amer 76 Est GFR (MDRD) Non-Af 63 BUN/Creatinine Ratio 18.4 Glucose 81 Calcium 7.7 L Medical Necessity - Tobacco Use Smoking Status: Never smoker Tobacco Use: Non-smoker Assessment/Plan All Active Problems (Last Reviewed 04/19/18 @ 13:35 by Hina Jane) Syncope and collapse (Acute) 1. Syncope-chest x-ray unremarkable. Troponin negative. Admission orthostatic vitals negative although borderline, repeat orthostatic vitals improved. Echocardiogram showed an EF of 60%, stage I diastolic dysfunction, pulmonary artery systolic pressure 27 mmHg. No significant change compared to prior study. Given patient's ongoing symptoms of weakness and dizziness as well as history of CAD status post PCI in 2009, feel patient should have stress test to rule out ischemia. Plan for stress test in a.m. 2. CAD status post PCI-continue aspirin, statin, Plavix, beta-ava. Follows with Dr. Mcintosh. Most recent stress test 2013. 3. Hypertension-stable, continue home regimen. 4. Hyperlipidemia-continue statin. 5. Ischemic cardiomyopathy-continue aspirin, statin, Plavix, carvedilol, losartan. 6. History of bilateral carotid artery disease-carotid ultrasound pending. Previous carotid ultrasound from 08/2017 showed moderate stenosis of the right internal carotid with 50-69% stenosis and mild, less than 50% stenosis of the left internal carotid. 7. Chronic kidney disease stage III-stable, trend BMP. 8. Anxiety/depression-continue home Prozac regimen. DVT prophylaxis-heparin subcu This patient was seen by SKIP Haque under the supervision of Dr. Crawford.
[2018-12-16] VITALS (8 sets, daily range): BP systolic 137–170; BP diastolic 57–78; PULSE 59–73; RESP 18; TEMP 36.5–36.8; O2SAT 94–97
[2018-12-16] MEDS: Losartan Potassium 50 MG Tablet PO (05:24)
[2018-12-16] MEDS: Aspirin E.C. 325 MG Tablet PO (05:24)
[2018-12-16] MEDS: Clopidogrel Bisulfate 75 MG Tablet PO (05:24)
--- NOTE | 2018-12-16 10:54 | CASEMGMT ---
MARIANO ESCOBEDO assessment: Face to Face with patient for initial transition planning/care coordination assessment. MARIANO ESCOBEDO introduced self and role at [facility], pt voices understanding and consents to assessment at this time. Pt is sitting up in bed in no distress at this time. Pt is A/OX4 at this time and answers all questions appropriately at this time. Pt's to room during assessment. Pt is aware that she is now inpt status, voices understanding. Care providers, pharmacy, and demographics verified at this time. PCP: Sultana PUENTE Specialists: Arnaldo Quevedo Pharmacy: [facility] Insurance: [facility] A/B Prescription Benefit: [employer] Living Will/HPOA: Pt states has HPOA and her is HPOA. Pt aware at this time that the HPOA is not on file at [facility] at this time. LNOK: Hitesh Kaur, ; Arnold Dior, daughter Living Arrangements: Pt states lives with 1 story home and states no concerns at home at this time. Pt states is independent with ADL's. Transportation: Pt states drives self or drives and states no transportation concerns at this time. DME/HHC: Pt states does not have any DME currently and states no need for any at this time. Pt states no hx of SNF or HHC in the past. Pt states no concerns with going home at time of discharge. Pt states is retired. Pt states does not smoke or drink ETOH. Pt states no further concerns/needs at this time. CM to follow for any further discharge planning/needs. Advised pt to ask for CM if any further questions/concerns/needs arise, voices understanding. Plan: [place] MARIANO ESCOBEDO
[2018-12-16] MEDS: FLUoxetine 20 MG Capsule PO (11:58)
[2018-12-16] MEDS: Carvedilol 12.5 MG Tablet PO (11:58)
--- NOTE | 2018-12-16 12:13 | STRESSREP ---
Stress Test Report Pharmacologic myocardial perfusion stress test. 78-year-old lady with a history of coronary artery disease hypertension previous LAD stenting in 2009. Stress protocol: Resting EKG demonstrates normal sinus rhythm with a rate of 69 bpm left bundle branch block is noted resting blood pressure 152/96. 0.4 mg of regadenoson was infused per usual protocol followed by rapid intravenous saline flush injection continuous EKG monitoring was performed. Patient maintained sinus rhythm throughout the recording. The maximum heart rate was 93 bpm which was 64% of maximum predicted heart rate the maximum workload was 1 metabolic equivalent. At rest there were no ST or T wave changes noted suggest abnormal flow reserve at peak infusion nonspecific ST-T wave changes were noted with no meet the criteria for ischemia. The resting blood pressure 152/96 maximum blood pressure 160/88. Myocardial perfusion protocol. 10.5 mCi of technetium 99m sestamibi was injected at rest. 0.4 mg of regadenoson was infused per usual protocol peak infusion 31.1 mCi of technetium 99m sestamibi was injected stress images were obtained stress and rest images were reconstructed and compared in the short axis vertical long horizontal long axis. Gated images were also obtained per Perfusion SPECT analysis: Review of the stress images demonstrate normal uptake of tracer noted in all areas of the myocardium. The resting images similarly demonstrate normal uptake of tracer noted in all areas of the myocardium. No areas of reversibility are noted suggest ischemia no previous infarct is noted. Gated SPECT analysis: The gated ejection fraction is noted to be 68%. Conclusion: Normal pharmacologic myocardial perfusion stress test. Preserved ejection fraction.
--- NOTE | 2018-12-16 12:58 | DCINST_ITS ---
- Discharge Diagnoses Current Active Problems: Current Active and Chronic Problems (Last Reviewed 04/19/18 @ 13:35 by Hina Jane) Syncope You will use the following diet at home:: Cardiac Discharge Activity: Return to Normal Activity Call your doctor if you observe: Shortness of breath, Dizziness, Fainting spells, Chest pain Allergies/Adverse Reactions: Allergies oxybutynin Allergy (Verified 12/13/18 13:54) Unknown lisinopril Adverse Reaction (Verified 12/13/18 13:54) Other Medications to take at Discharge carvedilol 12.5 mg tablet 12.5 mg PO BID #180 tab 01/02/18 Aspirin E.C. [Ecotrin] 325 mg PO DAILY@0800 02/17/18 Fluoxetine [Prozac] 20 mg PO DAILY 02/17/18 Multivitamin [Multiple Vitamins] 1 ea PO DAILY 02/17/18 Atorvastatin Calcium [Lipitor] 10 mg PO DAILY 12/13/18 Calcium Carbonate/Vitamin D3 [Calcium 600-Vit D3 200 Tablet] 1 tab PO DAILY 12/13/18 Cholecalciferol (Vitamin D3) [D3-2000] 2,000 unit PO DAILY 12/13/18 Clopidogrel Bisulfate [Clopidogrel] 75 mg PO DAILY 12/13/18 Loperamide HCl [Imodium A-D] 2 mg PO PRN PRN 12/13/18 Losartan Potassium 50 mg PO DAILY 12/13/18 Primary Care Physician: Wesley Weinberg III, MD [Primary Care Provider] - Please follow up with your Primary Care Physician in: 1 Week Test Results: Test results from this visit will be discussed in further detail at your follow- up appointment, if applicable. Please Follow Up With: Elmer Mcintosh MD When: As scheduled 01/22/19 Proposed Discharge Date: 12/16/18
--- NOTE | 2018-12-16 13:45 | PCM.DC.SUM ---
<Ana Negro - Last Filed: 12/16/18 13:53> Discharge Date and Diagnosis Date of Admission: 12/13/18 Date of Discharge: 12/16/18 - Primary Discharge Diagnosis 1. Syncope, suspected secondary to orthostatic hypotension 2. CAD status post PCI, negative stress test 3. Hypertension 4. Hyperlipidemia 5. Ischemic cardiomyopathy 6. History of bilateral carotid artery disease 7. Chronic kidney disease stage III 8. Anxiety/depression - Secondary Discharge Diagnosis Chronic Problems (Last Reviewed 04/19/18 @ 13:35 by Hina Jane) CKD (chronic kidney disease) stage 3, GFR 30-59 ml/min (Chronic) Presence of stent in coronary artery (Chronic ~02/23/10) PTCA/NICO of the LAD 02/23/10 LBBB (left bundle branch block) (Chronic) Cardiomyopathy in other diseases classified elsewhere (Chronic) Ischemic cardiomyopathy (Chronic) Paroxysmal tachycardia (Chronic) Bilateral carotid artery stenosis (Chronic) Hyperlipidemia (Chronic) Hypertension (Chronic) Atherosclerotic heart disease of [place] coronary artery without angina pectoris (Chronic) PTCA/NICO of the LAD 02/23/10 Hospital Course and Treatment Imaging Results: Diagnostic Data Chest X-Ray 12/13/18 15:01 IMPRESSION: Hyperinflation. No acute abnormality is seen. Electronically Signed: Alonzo Mulu, at 15:46 EST , Service support , Operations: None Procedures: 2-D Echocardiogram, Stress test Summary of Care Provided: The patient is a 78 year old F admitted due to syncope. 1. Syncope-suspect secondary to orthostatic hypotension. Chest x-ray unremarkable. Troponin negative. Admission orthostatic vitals negative although borderline, repeat orthostatic vitals improved. Echocardiogram showed an EF of 60%, stage I diastolic dysfunction, pulmonary artery systolic pressure 27 mmHg. No significant change compared to prior study. Given patient's ongoing symptoms of weakness and dizziness as well as history of CAD status post PCI in 2009, patient underwent stress test which was negative for ischemia. Patient will continue outpatient follow-up with Dr. Mcintosh. Follow-up with primary care physician in 1 week. Patient was instructed to document blood pressure findings if dizziness/syncope recur. She may need adjustment in her blood pressure regimen. Recommended taking losartan at bedtime given recurrent dizziness tends to happen late morning following blood pressure regimen. 2. CAD status post PCI-continue aspirin, statin, Plavix, beta-ava. Follows with Dr. Mcintosh. Negative stress test as noted above. 3. Hypertension-stable, continue home regimen. 4. Hyperlipidemia-continue statin. 5. Ischemic cardiomyopathy-continue aspirin, statin, Plavix, carvedilol, losartan. 6. History of bilateral carotid artery disease-Previous carotid ultrasound from 08/2017 showed moderate stenosis of the right internal carotid with 50-69% stenosis and mild, less than 50% stenosis of the left internal carotid. Carotid ultrasound completed during admission, results pending. 7. Chronic kidney disease stage III-stable. 8. Anxiety/depression-continue home Prozac regimen. General: Alert, Oriented x3, Cooperative HEENT: Atraumatic, PERRLA, EOMI, Normocephalic Neck: Supple, No JVD, Negative Carotid Bruits Lungs: Clear to auscultation, Normal air movement Cardiovascular: Regular rate, Regular Rhythm, Normal S1, Normal S2, No murmurs Abdomen: Bowel Sounds Present, Soft, Non Tender, Non-Distended Extremities: No clubbing, No cyanosis, No edema, Capillary Refill Less than 3 Seconds Skin: No rashes, No breakdown Musculoskeletal: No Tenderness to Palpation of Joints or Extremities Neurological: Cranial nerves II-XII grossly intact, Neuro grossly intact Psych/Mental Status: Normal Affect, Appropriate Patient seen and examined prior to discharge. Physical assessment as noted above. Patient is stable for discharge with follow up recommendations as noted above. This patient was seen by SKIP Haque under the supervision of Dr. Clark. - Physical Exam Vital Signs Temp Pulse Resp BP Pulse Ox 97.7 F L 64 18 170/74 H 97 12/16/18 11:14 12/16/18 11:48 12/16/18 11:14 12/16/18 11:48 12/16/18 11:14 Oxygen Delivery Method Room Air Weight: 114 lb 10.246 oz Body Mass Index (BMI) 19.6 Finger Stick Blood Glucose 123 Orthostatic Vital Signs Start: 12/13/18 22:32 Freq: 0600 Status: Active Protocol: Activity Type Activity Date Activity User E-Sign Co-Sign Detail Recorded Client Recorded Date Recorded By Document 12/16/18 11:48 KS [id number] 12/16/18 11:57 KS 12/16/18 11:48 Orthostatic Vitals Standing -Blood Pressure (90/60-120/80) 164/77 H -Extremity Use Right Arm -Pulse Rate (60-100) 64 Sitting -Blood Pressure (90/60-120/80) 155/70 H -Extremity Use Right Arm -Pulse Rate (60-100) 66 Lying -Blood Pressure (90/60-120/80) 170/74 H -Extremity Use Right Arm -Pulse Rate (60-100) 64 Intake and Output for Last 24 Hours 12/14/18 12/15/18 12/16/18 23:59 23:59 23:59 Intake Total 2666 / 2666 1436 / 1436 340 / 340 Output Total / Balance 2664 / 2664 1436 / 1436 340 / 340 Discharge Diet: Low fat/ Low Cholesterol Discharge Activity: Return to Normal Activity Call your doctor if you observe: Shortness of breath, Dizziness, Fainting spells, Chest pain Home Medications: Medications to take at Discharge carvedilol 12.5 mg tablet 12.5 mg PO BID #180 tab 01/02/18 Aspirin E.C. [Ecotrin] 325 mg PO DAILY@0800 02/17/18 Fluoxetine [Prozac] 20 mg PO DAILY 02/17/18 Multivitamin [Multiple Vitamins] 1 ea PO DAILY 02/17/18 Atorvastatin Calcium [Lipitor] 10 mg PO DAILY 12/13/18 Calcium Carbonate/Vitamin D3 [Calcium 600-Vit D3 200 Tablet] 1 tab PO DAILY 12/13/18 Cholecalciferol (Vitamin D3) [D3-2000] 2,000 unit PO DAILY 12/13/18 Clopidogrel Bisulfate [Clopidogrel] 75 mg PO DAILY 12/13/18 Loperamide HCl [Imodium A-D] 2 mg PO PRN PRN 12/13/18 Losartan Potassium 50 mg PO DAILY 12/13/18 Primary Care Physician: Wesley Weinberg III, MD [Primary Care Provider] - Please follow up with your Primary Care Physician in: 1 Week Please Follow Up With: Elmer Mcintosh MD When: As scheduled 01/22/19 Disposition: Home Minutes spent on discharge:: 35 Patient Condition:: Stable Medical Necessity - Tobacco Use Smoking Status: Never smoker Tobacco Use: Non-smoker Meaningful Use Info Meaningful Use Diagnoses (Choose all that apply): None applicable <Ivan Clark F - Last Filed: 12/16/18 14:15> Discharge Date and Diagnosis - Secondary Discharge Diagnosis Chronic Problems (Last Reviewed 04/19/18 @ 13:35 by Hina Jane) CKD (chronic kidney disease) stage 3, GFR 30-59 ml/min (Chronic) Presence of stent in coronary artery (Chronic ~02/23/10) PTCA/NICO of the LAD 02/23/10 LBBB (left bundle branch block) (Chronic) Cardiomyopathy in other diseases classified elsewhere (Chronic) Ischemic cardiomyopathy (Chronic) Paroxysmal tachycardia (Chronic) Bilateral carotid artery stenosis (Chronic) Hyperlipidemia (Chronic) Hypertension (Chronic) Atherosclerotic heart disease of [place] coronary artery without angina pectoris (Chronic) PTCA/NICO of the LAD 02/23/10 Hospital Course and Treatment Summary of Care Provided: The patient is a 78 year old F [] - Physical Exam Vital Signs Temp Pulse Resp BP Pulse Ox 97.7 F L 64 18 170/74 H 97 12/16/18 11:14 12/16/18 11:48 12/16/18 11:14 12/16/18 11:48 12/16/18 11:14 Oxygen Delivery Method Room Air Weight: 114 lb 10.246 oz Body Mass Index (BMI) 19.6 Finger Stick Blood Glucose 123 Orthostatic Vital Signs Start: 12/13/18 22:32 Freq: 0600 Status: Active Protocol: Activity Type Activity Date Activity User E-Sign Co-Sign Detail Recorded Client Recorded Date Recorded By Document 12/16/18 11:48 KS [id number] 12/16/18 11:57 KS 12/16/18 11:48 Orthostatic Vitals Standing -Blood Pressure (90/60-120/80) 164/77 H -Extremity Use Right Arm -Pulse Rate (60-100) 64 Sitting -Blood Pressure (90/60-120/80) 155/70 H -Extremity Use Right Arm -Pulse Rate (60-100) 66 Lying -Blood Pressure (90/60-120/80) 170/74 H -Extremity Use Right Arm -Pulse Rate (60-100) 64 Intake and Output for Last 24 Hours 12/14/18 12/15/18 12/16/18 23:59 23:59 23:59 Intake Total 2666 / 2666 1436 / 1436 340 / 340 Output Total Balance 2664 / 2664 1436 / 1436 340 / 340 Code Visit Addendum: Dr. Clark I personally examined the patient and reviewed the chart. I agree with the above. 78-year-old female with a history of hypertension, coronary artery disease presenting with syncope. She states that in the morning she takes her blood pressure pills and then about an hour and a half later she feels dizzy and lightheaded and is pretty much nonfunctional for the rest of the day. During this admission she had an echocardiogram with an EF of 60% and stage I diastolic dysfunction with mild pulmonary artery hypertension of 27 mmHg. She also had a stress test which was negative for any ischemia with an EF of 68%. I discussed with her that it seems likely that her symptoms are secondary to her Coreg and losartan in the morning. I discussed with her about taking her losartan at night before bed so if she is not symptomatic during the day. She is to follow-up with cardiology at her previously scheduled appointment in early January. Inpatient E&M: [id number] Disch Hosp
--- NOTE | 2018-12-16 13:53 | DS.PCM_ITS ---
<Ana Negro - Last Filed: 12/16/18 13:53> Discharge Date and Diagnosis Date of Admission: 12/13/18 Date of Discharge: 12/16/18 - Primary Discharge Diagnosis 1. Syncope, suspected secondary to orthostatic hypotension 2. CAD status post PCI, negative stress test 3. Hypertension 4. Hyperlipidemia 5. Ischemic cardiomyopathy 6. History of bilateral carotid artery disease 7. Chronic kidney disease stage III 8. Anxiety/depression - Secondary Discharge Diagnosis Chronic Problems (Last Reviewed 04/19/18 @ 13:35 by Hina Jane) CKD (chronic kidney disease) stage 3, GFR 30-59 ml/min (Chronic) Presence of stent in coronary artery (Chronic ~02/23/10) PTCA/NICO of the LAD 02/23/10 LBBB (left bundle branch block) (Chronic) Cardiomyopathy in other diseases classified elsewhere (Chronic) Ischemic cardiomyopathy (Chronic) Paroxysmal tachycardia (Chronic) Bilateral carotid artery stenosis (Chronic) Hyperlipidemia (Chronic) Hypertension (Chronic) Atherosclerotic heart disease of [place] coronary artery without angina pectoris (Chronic) PTCA/NICO of the LAD 02/23/10 Hospital Course and Treatment Imaging Results: Diagnostic Data Chest X-Ray 12/13/18 15:01 IMPRESSION: Hyperinflation. No acute abnormality is seen. Electronically Signed: Alonzo Mulu, at 15:46 EST , Service support , Operations: None Procedures: 2-D Echocardiogram, Stress test Summary of Care Provided: The patient is a 78 year old F admitted due to syncope. 1. Syncope-suspect secondary to orthostatic hypotension. Chest x-ray unremarkable. Troponin negative. Admission orthostatic vitals negative although borderline, repeat orthostatic vitals improved. Echocardiogram showed an EF of 60%, stage I diastolic dysfunction, pulmonary artery systolic pressure 27 mmHg. No significant change compared to prior study. Given patient's ongoing symptoms of weakness and dizziness as well as history of CAD status post PCI in 2009, patient underwent stress test which was negative for ischemia. Patient will continue outpatient follow-up with Dr. Mcintosh. Follow-up with primary care physician in 1 week. Patient was instructed to document blood pressure findings if dizziness/syncope recur. She may need adjustment in her blood pressure regimen. Recommended taking losartan at bedtime given recurrent dizziness tends to happen late morning following blood pressure regimen. 2. CAD status post PCI-continue aspirin, statin, Plavix, beta-ava. Follows with Dr. Mcintosh. Negative stress test as noted above. 3. Hypertension-stable, continue home regimen. 4. Hyperlipidemia-continue statin. 5. Ischemic cardiomyopathy-continue aspirin, statin, Plavix, carvedilol, losartan. 6. History of bilateral carotid artery disease-Previous carotid ultrasound from 08/2017 showed moderate stenosis of the right internal carotid with 50-69% stenosis and mild, less than 50% stenosis of the left internal carotid. Carotid ultrasound completed during admission, results pending. 7. Chronic kidney disease stage III-stable. 8. Anxiety/depression-continue home Prozac regimen. General: Alert, Oriented x3, Cooperative HEENT: Atraumatic, PERRLA, EOMI, Normocephalic Neck: Supple, No JVD, Negative Carotid Bruits Lungs: Clear to auscultation, Normal air movement Cardiovascular: Regular rate, Regular Rhythm, Normal S1, Normal S2, No murmurs Abdomen: Bowel Sounds Present, Soft, Non Tender, Non-Distended Extremities: No clubbing, No cyanosis, No edema, Capillary Refill Less than 3 Seconds Skin: No rashes, No breakdown Musculoskeletal: No Tenderness to Palpation of Joints or Extremities Neurological: Cranial nerves II-XII grossly intact, Neuro grossly intact Psych/Mental Status: Normal Affect, Appropriate Patient seen and examined prior to discharge. Physical assessment as noted above. Patient is stable for discharge with follow up recommendations as noted above. This patient was seen by SKIP Haque under the supervision of Dr. Clark. - Physical Exam Vital Signs Temp Pulse Resp BP Pulse Ox 97.7 F L 64 18 170/74 H 97 12/16/18 11:14 12/16/18 11:48 12/16/18 11:14 12/16/18 11:48 12/16/18 11:14 Oxygen Delivery Method Room Air Weight: 114 lb 10.246 oz Body Mass Index (BMI) 19.6 Finger Stick Blood Glucose 123 Orthostatic Vital Signs Start: 12/13/18 22:32 Freq: 0600 Status: Active Protocol: Activity Type Activity Date Activity User E-Sign Co-Sign Detail Recorded Client Recorded Date Recorded By Document 12/16/18 11:48 KS [id number] 12/16/18 11:57 KS 12/16/18 11:48 Orthostatic Vitals Standing -Blood Pressure (90/60-120/80) 164/77 H -Extremity Use Right Arm -Pulse Rate (60-100) 64 Sitting -Blood Pressure (90/60-120/80) 155/70 H -Extremity Use Right Arm -Pulse Rate (60-100) 66 Lying -Blood Pressure (90/60-120/80) 170/74 H -Extremity Use Right Arm -Pulse Rate (60-100) 64 Intake and Output for Last 24 Hours 12/14/18 12/15/18 12/16/18 23:59 23:59 23:59 Intake Total 2666 / 2666 1436 / 1436 340 / 340 Output Total / Balance 2664 / 2664 1436 / 1436 340 / 340 Discharge Diet: Low fat/ Low Cholesterol Discharge Activity: Return to Normal Activity Call your doctor if you observe: Shortness of breath, Dizziness, Fainting spells, Chest pain Home Medications: Medications to take at Discharge carvedilol 12.5 mg tablet 12.5 mg PO BID #180 tab 01/02/18 Aspirin E.C. [Ecotrin] 325 mg PO DAILY@0800 02/17/18 Fluoxetine [Prozac] 20 mg PO DAILY 02/17/18 Multivitamin [Multiple Vitamins] 1 ea PO DAILY 02/17/18 Atorvastatin Calcium [Lipitor] 10 mg PO DAILY 12/13/18 Calcium Carbonate/Vitamin D3 [Calcium 600-Vit D3 200 Tablet] 1 tab PO DAILY 12/13/18 Cholecalciferol (Vitamin D3) [D3-2000] 2,000 unit PO DAILY 12/13/18 Clopidogrel Bisulfate [Clopidogrel] 75 mg PO DAILY 12/13/18 Loperamide HCl [Imodium A-D] 2 mg PO PRN PRN 12/13/18 Losartan Potassium 50 mg PO DAILY 12/13/18 Primary Care Physician: Wesley Weinberg III, MD [Primary Care Provider] - Please follow up with your Primary Care Physician in: 1 Week Please Follow Up With: Elmer Mcintosh MD When: As scheduled 01/22/19 Disposition: Home Minutes spent on discharge:: 35 Patient Condition:: Stable Medical Necessity - Tobacco Use Smoking Status: Never smoker Tobacco Use: Non-smoker Meaningful Use Info Meaningful Use Diagnoses (Choose all that apply): None applicable <Ivan Clark F - Last Filed: 12/16/18 14:15> Discharge Date and Diagnosis - Secondary Discharge Diagnosis Chronic Problems (Last Reviewed 04/19/18 @ 13:35 by Hina Jane) CKD (chronic kidney disease) stage 3, GFR 30-59 ml/min (Chronic) Presence of stent in coronary artery (Chronic ~02/23/10) PTCA/NICO of the LAD 02/23/10 LBBB (left bundle branch block) (Chronic) Cardiomyopathy in other diseases classified elsewhere (Chronic) Ischemic cardiomyopathy (Chronic) Paroxysmal tachycardia (Chronic) Bilateral carotid artery stenosis (Chronic) Hyperlipidemia (Chronic) Hypertension (Chronic) Atherosclerotic heart disease of [place] coronary artery without angina pectoris (Chronic) PTCA/NICO of the LAD 02/23/10 Hospital Course and Treatment Summary of Care Provided: The patient is a 78 year old F [] - Physical Exam Vital Signs Temp Pulse Resp BP Pulse Ox 97.7 F L 64 18 170/74 H 97 12/16/18 11:14 12/16/18 11:48 12/16/18 11:14 12/16/18 11:48 12/16/18 11:14 Oxygen Delivery Method Room Air Weight: 114 lb 10.246 oz Body Mass Index (BMI) 19.6 Finger Stick Blood Glucose 123 Orthostatic Vital Signs Start: 12/13/18 22:32 Freq: 0600 Status: Active Protocol: Activity Type Activity Date Activity User E-Sign Co-Sign Detail Recorded Client Recorded Date Recorded By Document 12/16/18 11:48 KS [id number] 12/16/18 11:57 KS 12/16/18 11:48 Orthostatic Vitals Standing -Blood Pressure (90/60-120/80) 164/77 H -Extremity Use Right Arm -Pulse Rate (60-100) 64 Sitting -Blood Pressure (90/60-120/80) 155/70 H -Extremity Use Right Arm -Pulse Rate (60-100) 66 Lying -Blood Pressure (90/60-120/80) 170/74 H -Extremity Use Right Arm -Pulse Rate (60-100) 64 Intake and Output for Last 24 Hours 12/14/18 12/15/18 12/16/18 23:59 23:59 23:59 Intake Total 2666 / 2666 1436 / 1436 340 / 340 Output Total Balance 2664 / 2664 1436 / 1436 340 / 340 Code Visit Addendum: Dr. Clark I personally examined the patient and reviewed the chart. I agree with the above. 78-year-old female with a history of hypertension, coronary artery disease presenting with syncope. She states that in the morning she takes her blood pressure pills and then about an hour and a half later she feels dizzy and lightheaded and is pretty much nonfunctional for the rest of the day. During this admission she had an echocardiogram with an EF of 60% and stage I diastolic dysfunction with mild pulmonary artery hypertension of 27 mmHg. She also had a stress test which was negative for any ischemia with an EF of 68%. I discussed with her that it seems likely that her symptoms are secondary to her Coreg and losartan in the morning. I discussed with her about taking her losartan at night before bed so if she is not symptomatic during the day. She is to follow- up with cardiology at her previously scheduled appointment in early January. Inpatient E&M: [id number] Disch Hosp
--- NOTE | 2018-12-17 15:12 | CASEMGMT ---
RN CM DISCHARGE PHONE CALL DC DATE: 12/16/18 DC DISPOSITION: Home LACE/STRATA: 09/17 Intro role of CM to patient via phone. Pt states she has good understanding of her medications, no questions re: instructions and pt has f/u appointment on 12/19/18. Pt states she had great care and no care improvement suggestions given. Ayla DEMARCON RN ACM
== END 2018-12-16 14:46 | disposition home or self-care (01) | DRG 312 ==
LOC: ED 15:59 → PCU 16:33
PROVIDERS: Nurse Practitioner Family; Admitting Provider Family Medicine; Emergency Provider Emergency Medicine; Family Provider Family Medicine; PCP Family Medicine; Referring Provider Family Medicine; Visit Provider Family Medicine
DX: I95.1 Orthostatic hypotension (principal); E86.0 Dehydration; E87.6 Hypokalemia; I65.23 Occlusion and stenosis of bilateral carotid arteries; I44.7 Left bundle-branch block, unspecified; I25.5 Ischemic cardiomyopathy; I12.9 Hypertensive chronic kidney disease with stage 1 through stage 4 chronic kidney disease, or unspecified chronic kidney disease; N18.3 Chronic kidney disease, stage 3 (moderate); I25.10 Atherosclerotic heart disease of native coronary artery without angina pectoris; E78.5 Hyperlipidemia, unspecified; F32.9 Major depressive disorder, single episode, unspecified; F41.9 Anxiety disorder, unspecified; Z79.82 Long term (current) use of aspirin; Z79.899 Other long term (current) drug therapy; Z79.02 Long term (current) use of antithrombotics/antiplatelets; Z95.5 Presence of coronary angioplasty implant and graft
CPT/HCPCS: 36415; 71045; 78452; 80048; 80053; 82962; 83735; 84443; 84484; 85025; 93005; 93017; 93306; 93880; 99283; A9500; J7030; A4216; J2785